=== PATIENT | female | born 1940 | race Caucasian/White ===

== ENCOUNTER 2022-02-14 13:19 | Inpatient (IN) | payer OTHER ==
[2022-02-14 14:24] LABS: #Eosinphils 0.1 thou/uL (0.0-0.7); #Lymphocytes 1.4 thou/uL (1.20-3.40); #Monocytes 0.9 thou/uL (0.11-0.59); #Neutrophils 5.7 thou/uL (1.40-6.50); %Basophils 0.1 % (0.0-1.0); %Eosinophils 0.8 % (0.0-10.0); %Lymphocytes 17.7 % (21.0-51.0); %Monocytes 11.4 % (0.0-10.0); Mean Corpuscular HGB CONC 29.9 g/dL (32.0-36.0); Mean Corpuscular Hemoglobin 30.1 pg (27.0-31.0); Mean Platelet Volume 9.8 fL (7.4-10.4); Platelet Count 148 thou/uL (130-400); RBC Distribution Width 12.7 % (11.5-14.5); Red Blood Cell (RBC) Count 4.31 mill/uL (4.20-5.40); White Blood Cell (WBC) Count 8.1 thou/uL (4.8-10.8)
[2022-02-14 14:44] LABS: ALT (SGPT) 13 U/L (8-55); AST (SGOT) 21 U/L (5-34); Albumin 3.9 g/dL (3.4-4.8); Alkaline Phosphatase 68 U/L (40-110); Anion Gap 15 mmol/L (10-20); BUN (Urea Nitrogen) 12 mg/dL (9.8-20.1); Bilirubin, Total 0.6 mg/dL (0.2-1.2); Calc. Creatinine Clearance 0 mL/min (70-130); Carbon Dioxide 21 mmol/L (23-31); Chloride 108 mmol/L (98-107); Estimated GFR 47; Globulin 3.2 g/dL (2.4-3.5); Glucose 99 mg/dL (83-110); Lipase 41 U/L (8-78); Potassium 4.2 mmol/L (3.5-5.1); Protein, Total 7.1 g/dL (5.8-8.1); Sodium 140 mmol/L (136-145)
[2022-02-14 14:50] LABS: MDiff Complete? YES; Macrocytosis SLIGHT = 6-15 cells (100X) (0-5/hpf); Platelet Morphology Comment Appears Adequate
[2022-02-14 15:06] LABS: CKMB 1.9 ng/mL (0-6.6)
[2022-02-14 15:29] LABS: Bilirubin Negative (Negative); Blood, Urine Trace (Negative); Clarity Turbid (Clear); Glucose, Urine (Dipstick) Normal (Negative); Ketone, Urine Negative (Negative); Leukocyte 500 Leu/uL (Negative); Nitrite 2+ (Negative); Protein, Urine (Dipstick) 10 mg/dL (Neg-Trace); Specific Gravity, Urine 1.013 (1.002-1.036); Squamous Epithelial 0-3 HPF (0-3); Urobilinogen Normal mg/dL (Less than 2)
[2022-02-14 15:37] LABS: Bacteria/HPF 4+ HPF (None Seen); WBC/HPF 21-50 HPF (0-3); Yeast-Budding None Seen HPF (None Seen)
[2022-02-14] MEDS ORDERED: Aspirin Chewable 81 MG TAB ONE (16:15)
[2022-02-14 17:57] LABS: Troponin I 0.039 ng/mL (< 0.028)
[2022-02-14] MEDS ORDERED: Enoxaparin Sodium 40 MG/0.4 ML SYRINGE SC SCH (18:00)
[2022-02-14] MEDS ORDERED: Nitroglycerin 2% Ointment 1 INCH/1 GM Packet ONE (18:09)
[2022-02-14 18:15] LABS: Magnesium 1.9 mg/dL (1.6-2.6); Phosphorus 2.5 mg/dL (2.3-4.7)
[2022-02-14 18:17] LABS: Hemoglobin A1c 5.2 % (4.0-6.0)
[2022-02-14 18:59] LABS: Creatinine, Urine 76.17 mg/dL (47-110)
[2022-02-14 19:04] VITALS: BMI 33.0
[2022-02-14] MEDS ORDERED: Magnesium 2 GM/50 ML(in water) 1 GM in Premix Bag 1 BAG IVPB SCH (19:15)
[2022-02-14] MEDS ORDERED: Magnesium 2 GM/50 ML BAG (IN WATER) ONE (20:04)
[2022-02-14] MEDS ORDERED: cefTRIAXone\\ROCEPHIN 1 GM VIAL ONE (20:04)
[2022-02-14] MEDS ORDERED: ALPRAZolam 0.5 MG TAB PO PRN (20:33)
[2022-02-14] MEDS ORDERED: traMADol HCl 50 MG TAB PO SCH (20:45)
[2022-02-14] MEDS: Simvastatin 10 MG TAB PO SCH (20:52)
[2022-02-14] MEDS: cefTRIAXone\\ROCEPHIN 1 GM in Sodium Chloride 0.9% 100 ML IVPB SCH (20:52)
[2022-02-14] MEDS: Carvedilol 6.25 MG TAB PO SCH (20:54)
[2022-02-14 21:55] LABS: Troponin I 0.035 ng/mL (< 0.028)
[2022-02-14] MEDS ORDERED: Zolpidem Tartrate 5 MG TAB PO SCH (23:15)
[2022-02-15 05:17] LABS: Anion Gap 12 mmol/L (10-20); BUN (Urea Nitrogen) 12 mg/dL (9.8-20.1); Calc. Creatinine Clearance 52 mL/min (70-130); Calcium 8.3 mg/dL (7.8-10.44); Carbon Dioxide 24 mmol/L (23-31); Cardiac Risk 2.3 (Less than 4.5); Chloride 107 mmol/L (98-107); Cholesterol 116 mg/dl (< 200 Desired); Estimated GFR 45; Glucose 94 mg/dL (83-110); HDL Cholesterol 51 mg/dL (>60 Neg Risk); LDL Cholesterol, Calculated 49 mg/dL; Potassium 3.8 mmol/L (3.5-5.1); Sodium 139 mmol/L (136-145); Triglycerides 80 mg/dL (Less than 150)
[2022-02-15] MEDS: Levothyroxine Sodium 100 MCG TAB PO SCH (05:36)
[2022-02-15 06:03] LABS: #Lymphocytes 2.3 thou/uL (1.20-3.40); #Monocytes 1.1 thou/uL (0.11-0.59); #Neutrophils 4.6 thou/uL (1.40-6.50); %Basophils 0.2 % (0.0-1.0); %Eosinophils 0.5 % (0.0-10.0); %Lymphocytes 28.6 % (21.0-51.0); %Monocytes 14.1 % (0.0-10.0); %Neutrophils 56.5 % (42.0-75.0); Hemoglobin 11.6 g/dL (12.0-16.0); Mean Corpuscular HGB CONC 33.6 g/dL (32.0-36.0); Mean Corpuscular Hemoglobin 32.2 pg (27.0-31.0); Mean Corpuscular Volume 95.9 fL (78.0-98.0); Mean Platelet Volume 9.1 fL (7.4-10.4); Platelet Count 166 thou/uL (130-400); RBC Distribution Width 12.3 % (11.5-14.5); White Blood Cell (WBC) Count 8.1 thou/uL (4.8-10.8)
[2022-02-15 06:04] LABS: Platelet Morphology Comment Appears Adequate
[2022-02-15] MEDS ORDERED: Aspirin 81 mg Enteric Coated Tablet PO SCH (09:00)
[2022-02-15] MEDS: ALPRAZolam 0.5 MG TAB PO PRN (09:19)
[2022-02-15] MEDS: Clopidogrel Bisulfate 75 MG TAB PO SCH (09:19)
[2022-02-15] MEDS: Acetaminophen 325 MG TAB PO PRN (09:19)
[2022-02-15] MEDS: Lisinopril 20 MG TAB PO SCH (09:20)
[2022-02-15] MEDS: Aspirin Chewable 81 MG TAB PO SCH (09:20)
[2022-02-15] MEDS ORDERED: Regadenoson 0.4 MG/5 ML SYRINGE ONE (09:40)
[2022-02-15] MEDS: cefTRIAXone\\ROCEPHIN 1 GM in Sodium Chloride 0.9% 100 ML IVPB SCH (21:28)
[2022-02-15] MEDS: Simvastatin 10 MG TAB PO SCH (21:31)
[2022-02-16] MEDS: Levothyroxine Sodium 100 MCG TAB PO SCH (04:54)
[2022-02-16] MEDS: Acetaminophen 325 MG TAB PO PRN (04:54)
[2022-02-16 05:01] LABS: Band 2 % (5-11); Hemoglobin 11.7 g/dL (12.0-16.0); Hypochromia SLIGHT = 6-15 cells (100X) (0-5/hpf); Lymphocytes 49 % (21-51); MDiff Complete? YES; Mean Corpuscular HGB CONC 31.7 g/dL (32.0-36.0); Mean Corpuscular Hemoglobin 30.8 pg (27.0-31.0); Mean Corpuscular Volume 97.1 fL (78.0-98.0); Mean Platelet Volume 8.1 fL (7.4-10.4); Monocytes 6 % (0-10); Neutrophil 43 % (42-75); Platelet Count 162 thou/uL (130-400); Platelet Morphology Comment Appears Adequate; RBC Distribution Width 12.4 % (11.5-14.5); Red Blood Cell (RBC) Count 3.79 mill/uL (4.20-5.40); White Blood Cell (WBC) Count 4.8 thou/uL (4.8-10.8)
[2022-02-16 05:04] LABS: Anion Gap 10 mmol/L (10-20); BUN (Urea Nitrogen) 15 mg/dL (9.8-20.1); Calc. Creatinine Clearance 55 mL/min (70-130); Calcium 8.3 mg/dL (7.8-10.44); Carbon Dioxide 23 mmol/L (23-31); Chloride 109 mmol/L (98-107); Estimated GFR 48; Glucose 84 mg/dL (83-110); Potassium 3.8 mmol/L (3.5-5.1); Sodium 138 mmol/L (136-145)
[2022-02-16] MEDS: Aspirin Chewable 81 MG TAB PO SCH (10:48)
[2022-02-16] MEDS: Clopidogrel Bisulfate 75 MG TAB PO SCH (10:48)
[2022-02-16] MEDS: Lisinopril 20 MG TAB PO SCH (10:49)
[2022-02-16] MEDS: cefTRIAXone\\ROCEPHIN 1 GM in Sodium Chloride 0.9% 100 ML IVPB SCH (21:34)
[2022-02-16] MEDS: Simvastatin 10 MG TAB PO SCH (21:34)
[2022-02-17] MEDS: ALPRAZolam 0.5 MG TAB PO PRN ×2 (00:19→23:46)
[2022-02-17 04:53] LABS: #Eosinphils 0.2 thou/uL (0.0-0.7); #Lymphocytes 1.9 thou/uL (1.20-3.40); #Monocytes 0.7 thou/uL (0.11-0.59); #Neutrophils 2.8 thou/uL (1.40-6.50); %Basophils 0.7 % (0.0-1.0); %Eosinophils 2.7 % (0.0-10.0); %Lymphocytes 34.1 % (21.0-51.0); %Monocytes 12.9 % (0.0-10.0); %Neutrophils 49.7 % (42.0-75.0); Hemoglobin 12.6 g/dL (12.0-16.0); Mean Corpuscular HGB CONC 33.3 g/dL (32.0-36.0); Mean Corpuscular Hemoglobin 32.1 pg (27.0-31.0); Mean Corpuscular Volume 96.2 fL (78.0-98.0); Platelet Count 207 thou/uL (130-400); RBC Distribution Width 12.3 % (11.5-14.5); Red Blood Cell (RBC) Count 3.91 mill/uL (4.20-5.40); White Blood Cell (WBC) Count 5.6 thou/uL (4.8-10.8)
[2022-02-17 05:11] LABS: Anion Gap 11 mmol/L (10-20); BUN (Urea Nitrogen) 13 mg/dL (9.8-20.1); Calc. Creatinine Clearance 52 mL/min (70-130); Calcium 8.7 mg/dL (7.8-10.44); Carbon Dioxide 26 mmol/L (23-31); Chloride 107 mmol/L (98-107); Estimated GFR 45; Glucose 94 mg/dL (83-110); Potassium 3.7 mmol/L (3.5-5.1); Sodium 140 mmol/L (136-145)
[2022-02-17] MEDS: Levothyroxine Sodium 100 MCG TAB PO SCH (05:51)
[2022-02-17] MEDS ORDERED: Communication Order-Pharmacy FS SCH (08:00)
[2022-02-17] MEDS: Aspirin Chewable 81 MG TAB PO SCH (09:35)
[2022-02-17] MEDS: Carvedilol 6.25 MG TAB PO SCH ×2 (09:36→20:51)
[2022-02-17] MEDS: Clopidogrel Bisulfate 75 MG TAB PO SCH (09:36)
[2022-02-17] MEDS: Lisinopril 20 MG TAB PO SCH (09:36)
[2022-02-17] MEDS: Simvastatin 10 MG TAB PO SCH (20:50)
[2022-02-17] MEDS: cefTRIAXone\\ROCEPHIN 1 GM in Sodium Chloride 0.9% 100 ML IVPB SCH (21:08)
[2022-02-18] MEDS: Aspirin Chewable 81 MG TAB PO SCH (05:47)
[2022-02-18] MEDS: Levothyroxine Sodium 100 MCG TAB PO SCH (05:49)
[2022-02-18] MEDS: Lisinopril 20 MG TAB PO SCH (05:49)
[2022-02-18] MEDS: Carvedilol 6.25 MG TAB PO SCH ×2 (05:49→20:22)
[2022-02-18] MEDS: Clopidogrel Bisulfate 75 MG TAB PO SCH (05:50)
[2022-02-18] MEDS ORDERED: Sodium Chloride 0.9% 1,000 ML IV SCH ×2 (06:00→10:45)
[2022-02-18 08:20] LABS: #Eosinphils 0.1 thou/uL (0.0-0.7); #Lymphocytes 1.4 thou/uL (1.20-3.40); #Monocytes 0.6 thou/uL (0.11-0.59); #Neutrophils 2.3 thou/uL (1.40-6.50); %Basophils 0.2 % (0.0-1.0); %Eosinophils 3.2 % (0.0-10.0); %Lymphocytes 31.9 % (21.0-51.0); %Monocytes 13.6 % (0.0-10.0); %Neutrophils 51.1 % (42.0-75.0); Mean Corpuscular HGB CONC 33.1 g/dL (32.0-36.0); Mean Corpuscular Hemoglobin 31.9 pg (27.0-31.0); Mean Corpuscular Volume 96.5 fL (78.0-98.0); Platelet Count 191 thou/uL (130-400); RBC Distribution Width 12.3 % (11.5-14.5); Red Blood Cell (RBC) Count 3.78 mill/uL (4.20-5.40); White Blood Cell (WBC) Count 4.4 thou/uL (4.8-10.8)
[2022-02-18 08:34] LABS: Anion Gap 14 mmol/L (10-20); BUN (Urea Nitrogen) 13 mg/dL (9.8-20.1); Calc. Creatinine Clearance 55 mL/min (70-130); Calcium 8.8 mg/dL (7.8-10.44); Carbon Dioxide 24 mmol/L (23-31); Chloride 109 mmol/L (98-107); Estimated GFR 48; Glucose 93 mg/dL (83-110); Potassium 3.9 mmol/L (3.5-5.1); Sodium 143 mmol/L (136-145)
[2022-02-18] MEDS ORDERED: Lidocaine 1% (PF) 30 ML VIAL ONE (09:23)
[2022-02-18] MEDS ORDERED: Heparin 10,000 UNITS/ 10 ML VIAL ONE (09:27)
[2022-02-18] MEDS ORDERED: Verapamil 5 MG/2 ML VIAL ONE (09:27)
[2022-02-18] MEDS ORDERED: Nitroglycerin 100MG/250ML BOT 250 ML ONE (09:27)
[2022-02-18] MEDS ORDERED: Midazolam HCl 2 mg/2 ml Vial ONE (10:01)
[2022-02-18] MEDS ORDERED: Fentanyl 100 MCG/2 ML VIAL ONE (10:01)
[2022-02-18] MEDS ORDERED: Nitroglycerin 0.4 MG TAB (25 Tab Bottle) SL PRN (10:43)
[2022-02-18] MEDS ORDERED: Sodium Chloride 0.9% 200 ML IV PRN (10:43)
[2022-02-18] MEDS ORDERED: Acetaminophen/Codeine 30-300mg Tablet PO PRN ×2 (10:43)
[2022-02-18] MEDS ORDERED: Iopamidol 370 76% 100 ML VIAL ONE (13:27)
[2022-02-18] MEDS: cefTRIAXone\\ROCEPHIN 1 GM in Sodium Chloride 0.9% 100 ML IVPB SCH (20:21)
[2022-02-18] MEDS: Simvastatin 10 MG TAB PO SCH (20:22)
[2022-02-19] MEDS ORDERED: ALPRAZolam 0.5 MG TAB ONE (02:11)
[2022-02-19 05:07] LABS: #Eosinphils 0.1 thou/uL (0.0-0.7); #Lymphocytes 1.1 thou/uL (1.20-3.40); #Monocytes 0.5 thou/uL (0.11-0.59); #Neutrophils 1.7 thou/uL (1.40-6.50); %Basophils 0.5 % (0.0-1.0); %Eosinophils 3.1 % (0.0-10.0); %Monocytes 14.8 % (0.0-10.0); %Neutrophils 48.6 % (42.0-75.0); Hemoglobin 11.3 g/dL (12.0-16.0); Mean Corpuscular HGB CONC 31.3 g/dL (32.0-36.0); Mean Corpuscular Hemoglobin 30.2 pg (27.0-31.0); Mean Corpuscular Volume 96.6 fL (78.0-98.0); Mean Platelet Volume 8.7 fL (7.4-10.4); Platelet Count 217 thou/uL (130-400); RBC Distribution Width 12.7 % (11.5-14.5); Red Blood Cell (RBC) Count 3.74 mill/uL (4.20-5.40); White Blood Cell (WBC) Count 3.5 thou/uL (4.8-10.8)
[2022-02-19 05:29] LABS: Anion Gap 14 mmol/L (10-20); BUN (Urea Nitrogen) 9 mg/dL (9.8-20.1); Calc. Creatinine Clearance 58 mL/min (70-130); Calcium 8.6 mg/dL (7.8-10.44); Carbon Dioxide 21 mmol/L (23-31); Chloride 109 mmol/L (98-107); Estimated GFR 52; Glucose 95 mg/dL (83-110); Potassium 4.2 mmol/L (3.5-5.1); Sodium 140 mmol/L (136-145)
[2022-02-19] MEDS: Levothyroxine Sodium 100 MCG TAB PO SCH (05:52)
[2022-02-19] MEDS: Aspirin Chewable 81 MG TAB PO SCH (07:39)
[2022-02-19] MEDS: Lisinopril 20 MG TAB PO SCH (07:39)
[2022-02-19] MEDS: Carvedilol 6.25 MG TAB PO SCH ×2 (07:39→20:40)
[2022-02-19] MEDS ORDERED: Furosemide 40 MG/4 ML VIAL SLOW IVP SCH (11:00)
[2022-02-19] MEDS: Acetaminophen 325 MG TAB PO PRN (20:46)
[2022-02-19] MEDS ORDERED: Atorvastatin Calcium 10 MG TAB PO SCH (21:00)
[2022-02-20] MEDS: ALPRAZolam 0.5 MG TAB PO PRN (00:47)
[2022-02-20] MEDS: Levothyroxine Sodium 100 MCG TAB PO SCH (06:01)
[2022-02-20 08:28] VITALS: TEMP 97.5
[2022-02-20 08:33] LABS: Hemoglobin 11.9 g/dL (12.0-16.0); Mean Corpuscular HGB CONC 31.3 g/dL (32.0-36.0); Mean Corpuscular Volume 95.8 fL (78.0-98.0); Mean Platelet Volume 7.6 fL (7.4-10.4); Platelet Count 201 thou/uL (130-400); RBC Distribution Width 12.3 % (11.5-14.5); Red Blood Cell (RBC) Count 3.95 mill/uL (4.20-5.40)
[2022-02-20] MEDS: Aspirin Chewable 81 MG TAB PO SCH (08:40)
[2022-02-20] MEDS: Carvedilol 6.25 MG TAB PO SCH (08:41)
[2022-02-20 08:44] LABS: Anion Gap 15 mmol/L (10-20); BUN (Urea Nitrogen) 15 mg/dL (9.8-20.1); Calc. Creatinine Clearance 45 mL/min (70-130); Calcium 9.2 mg/dL (7.8-10.44); Carbon Dioxide 25 mmol/L (23-31); Chloride 106 mmol/L (98-107); Estimated GFR 38; Glucose 84 mg/dL (83-110); Potassium 4.6 mmol/L (3.5-5.1); Sodium 141 mmol/L (136-145)
[2022-02-20] MEDS ORDERED: Enoxaparin Sodium 40 MG/0.4 ML SYRINGE SC SCH (09:00)
[2022-02-20 11:08] LABS: Band 1 % (5-11); Eosinophils 2 % (0-10); Lymphocytes 37 % (21-51); MDiff Complete? YES; Monocytes 12 % (0-10); Neutrophil 42 % (42-75); Platelet Morphology Comment Appears Adequate; RBC Morphology Normal; Reactive Lymphocytes 6 % (0-10)
[2022-02-20 11:55] VITALS: BP 113/61
[2022-02-20] MEDS ORDERED: Sacubitril 49 MG/Valsartan 51 MG TABLET PO SCH (21:00)
== END 2022-02-20 12:22 | disposition home or self-care (01) | DRG 281 ==
LOC: ERS 13:19 → ERHOLD 16:23 → 2SW 18:38 → OBSVTOIN 02-17 09:05
PROVIDERS: ADMIT Student in an Organized Health Care Education/Training Program; ATTEND Student in an Organized Health Care Education/Training Program
PROC: 4A023N7 Measurement of Cardiac Sampling and Pressure, Left Heart, Percutaneous Approach (ICD-10-PCS; principal; 2022-02-18)
PROC: B2111ZZ Fluoroscopy of Multiple Coronary Arteries using Low Osmolar Contrast (ICD-10-PCS; 2022-02-18)
DX: I97.190 Other postprocedural cardiac functional disturbances following cardiac surgery (principal); I21.9 Acute myocardial infarction, unspecified; T82.855A Stenosis of coronary artery stent, initial encounter; I21.A9 Other myocardial infarction type; I50.20 Unspecified systolic (congestive) heart failure; N39.0 Urinary tract infection, site not specified; N17.9 Acute kidney failure, unspecified; Z16.29 Resistance to other single specified antibiotic; I25.10 Atherosclerotic heart disease of native coronary artery without angina pectoris; R07.89 Other chest pain; I25.5 Ischemic cardiomyopathy; I11.0 Hypertensive heart disease with heart failure; K21.9 Gastro-esophageal reflux disease without esophagitis; E89.0 Postprocedural hypothyroidism; B96.20 Unspecified Escherichia coli [E. coli] as the cause of diseases classified elsewhere; I44.0 Atrioventricular block, first degree; E78.5 Hyperlipidemia, unspecified; Y84.8 Other medical procedures as the cause of abnormal reaction of the patient, or of later complication, without mention of misadventure at the time of the procedure; J44.9 Chronic obstructive pulmonary disease, unspecified; Z20.822 Contact with and (suspected) exposure to COVID-19; Z95.5 Presence of coronary angioplasty implant and graft; Z86.73 Personal history of transient ischemic attack (TIA), and cerebral infarction without residual deficits; Z99.81 Dependence on supplemental oxygen; Z85.038 Personal history of other malignant neoplasm of large intestine; I25.2 Old myocardial infarction; Z86.16 Personal history of COVID-19; Z88.2 Allergy status to sulfonamides; Z88.0 Allergy status to penicillin; Z88.8 Allergy status to other drugs, medicaments and biological substances; Z90.49 Acquired absence of other specified parts of digestive tract; Z82.49 Family history of ischemic heart disease and other diseases of the circulatory system; Z87.891 Personal history of nicotine dependence; Z79.82 Long term (current) use of aspirin; Z79.899 Other long term (current) drug therapy; Z79.890 Hormone replacement therapy; Z79.02 Long term (current) use of antithrombotics/antiplatelets
CPT/HCPCS: 36415; 71045; 78452; 80048; 80053; 80061; 81003; 81015; 82553; 82570; 83036; 83690; 83735; 84100; 84300; 84443; 84484; 85025; 87077; 87086; 87186; 93005; 93017; 93306; 93458; 93798; 96365; 96372; 96375; 96376; A9500; C1769; C1887; C1894; G0378; J0696; J1644; J1650; J1940; J2001; J2250; J2785; J3010; J3475; J3490; J7050; Q9967; U0003; U0005

== ENCOUNTER 2022-03-21 04:53 | Inpatient (IN) | payer MEDICARE, OTHER ==
[2022-03-21] MEDS ORDERED: Aspirin Chewable 81 MG TAB ONE (05:31)
[2022-03-21 06:04] LABS: #Eosinphils 0.1 thou/uL (0.0-0.7); #Lymphocytes 1.6 thou/uL (1.20-3.40); #Monocytes 0.6 thou/uL (0.11-0.59); #Neutrophils 3.4 thou/uL (1.40-6.50); %Basophils 0.8 % (0.0-1.0); %Eosinophils 2.5 % (0.0-10.0); %Monocytes 9.9 % (0.0-10.0); %Neutrophils 58.9 % (42.0-75.0); Hemoglobin 13.1 g/dL (12.0-16.0); Mean Corpuscular HGB CONC 32.5 g/dL (32.0-36.0); Mean Corpuscular Hemoglobin 30.3 pg (27.0-31.0); Mean Corpuscular Volume 93.3 fL (78.0-98.0); Mean Platelet Volume 8.3 fL (7.4-10.4); Platelet Count 151 thou/uL (130-400); RBC Distribution Width 12.2 % (11.5-14.5); Red Blood Cell (RBC) Count 4.34 mill/uL (4.20-5.40); White Blood Cell (WBC) Count 5.8 thou/uL (4.8-10.8)
[2022-03-21 06:22] LABS: ALT (SGPT) 13 U/L (8-55); AST (SGOT) 23 U/L (5-34); Albumin 4.1 g/dL (3.4-4.8); Alkaline Phosphatase 83 U/L (40-110); Anion Gap 15 mmol/L (10-20); BUN (Urea Nitrogen) 22 mg/dL (9.8-20.1); Bilirubin, Total 0.5 mg/dL (0.2-1.2); Calc. Creatinine Clearance 0 mL/min (70-130); Calcium 9.3 mg/dL (7.8-10.44); Carbon Dioxide 22 mmol/L (23-31); Chloride 105 mmol/L (98-107); Estimated GFR 41; Globulin 3.3 g/dL (2.4-3.5); Glucose 122 mg/dL (83-110); Lipase 125 U/L (8-78); Potassium 4.1 mmol/L (3.5-5.1); Protein, Total 7.4 g/dL (5.8-8.1); Sodium 138 mmol/L (136-145)
[2022-03-21] MEDS ORDERED: Ondansetron PF 4 MG/2 ML Vial IVP PRN (08:22)
[2022-03-21] MEDS ORDERED: Ondansetron ODT 4 MG TAB PO PRN (08:22)
[2022-03-21] MEDS ORDERED: Acetaminophen 325 MG TAB PO PRN (08:22)
[2022-03-21 08:28] LABS: Troponin I 0.046 ng/mL (< 0.028)
[2022-03-21 09:44] VITALS: BMI 31.9
[2022-03-21] MEDS ORDERED: ALPRAZolam 0.5 MG TAB PO PRN (09:44)
[2022-03-21] MEDS ORDERED: Lactated Ringer's 500 ML IV SCH (10:00)
[2022-03-21 15:49] VITALS: TEMP 97.6
[2022-03-21 16:25] VITALS: BP 160/96
[2022-03-21] MEDS ORDERED: Atorvastatin Calcium 10 MG TAB PO SCH (21:00)
[2022-03-21] MEDS ORDERED: Sacubitril 49 MG/Valsartan 51 MG TABLET PO SCH (21:00)
[2022-03-21] MEDS ORDERED: Carvedilol 6.25 MG TAB PO SCH (21:00)
[2022-03-22] MEDS ORDERED: Levothyroxine Sodium 100 MCG TAB PO SCH (06:00)
[2022-03-22] MEDS ORDERED: Clopidogrel Bisulfate 75 MG TAB PO SCH (09:00)
[2022-03-22] MEDS ORDERED: Aspirin Chewable 81 MG TAB PO SCH (09:00)
== END 2022-03-21 17:10 | disposition home health service (06) | DRG 303 ==
LOC: ERS 04:53 → 2SW 06:54 → OBSVTOIN 08:29
PROVIDERS: ADMIT Student in an Organized Health Care Education/Training Program; ATTEND Student in an Organized Health Care Education/Training Program
DX: I25.110 Atherosclerotic heart disease of native coronary artery with unstable angina pectoris (principal); I50.22 Chronic systolic (congestive) heart failure; I13.0 Hypertensive heart and chronic kidney disease with heart failure and stage 1 through stage 4 chronic kidney disease, or unspecified chronic kidney disease; Z20.822 Contact with and (suspected) exposure to COVID-19; E78.5 Hyperlipidemia, unspecified; E03.9 Hypothyroidism, unspecified; K21.9 Gastro-esophageal reflux disease without esophagitis; N18.32 Chronic kidney disease, stage 3b; I25.5 Ischemic cardiomyopathy; E86.0 Dehydration; Z95.5 Presence of coronary angioplasty implant and graft; Z86.73 Personal history of transient ischemic attack (TIA), and cerebral infarction without residual deficits; Z88.0 Allergy status to penicillin; Z88.2 Allergy status to sulfonamides; Z88.1 Allergy status to other antibiotic agents; Z79.82 Long term (current) use of aspirin; Z79.890 Hormone replacement therapy; Z79.899 Other long term (current) drug therapy; Z90.49 Acquired absence of other specified parts of digestive tract
CPT/HCPCS: 36415; 71045; 80053; 83690; 83880; 84484; 85025; 93005; J7120; U0003; U0005

== ENCOUNTER 2022-10-04 18:05 | Inpatient (IN) | payer OTHER ==
[2022-10-04 18:51] LABS: #Eosinphils 0.1 thou/uL (0.0-0.7); #Lymphocytes 1.2 thou/uL (1.20-3.40); #Monocytes 0.5 thou/uL (0.11-0.59); #Neutrophils 3.1 thou/uL (1.40-6.50); %Basophils 0.3 % (0.0-1.0); %Eosinophils 1.1 % (0.0-10.0); %Lymphocytes 24.8 % (21.0-51.0); %Monocytes 10.3 % (0.0-10.0); %Neutrophils 63.5 % (42.0-75.0); Hemoglobin 11.9 g/dL (12.0-16.0); Mean Corpuscular HGB CONC 32.1 g/dL (32.0-36.0); Mean Corpuscular Hemoglobin 29.8 pg (27.0-31.0); Mean Corpuscular Volume 92.7 fl (78.0-98.0); Platelet Count 188 10x3/uL (130-400); RBC Distribution Width 13.3 % (11.5-14.5); White Blood Cell (WBC) Count 4.9 10x3/uL (4.8-10.8)
[2022-10-04 19:13] LABS: ALT (SGPT) 16 U/L (8-55); AST (SGOT) 28 U/L (5-34); Albumin 4.1 g/dL (3.4-4.8); Alkaline Phosphatase 68 U/L (40-110); Anion Gap 16 mmol/L (10-20); BUN (Urea Nitrogen) 20 mg/dL (9.8-20.1); Bilirubin, Total 0.6 mg/dL (0.2-1.2); Calc. Creatinine Clearance 0 mL/min (70-130); Calcium 9.3 mg/dL (7.8-10.44); Carbon Dioxide 21 mmol/L (23-31); Chloride 109 mmol/L (98-107); Estimated GFR 37; Globulin 2.9 g/dL (2.4-3.5); Glucose 104 mg/dL (83-110); Potassium 5.1 mmol/L (3.5-5.1); Sodium 141 mmol/L (136-145)
[2022-10-04] MEDS ORDERED: Furosemide 40 MG/4 ML VIAL ONE (21:05)
[2022-10-04] MEDS ORDERED: Nitroglycerin 2% Ointment 1 INCH/1 GM Packet ONE (21:05)
[2022-10-04] MEDS ORDERED: Ondansetron ODT 4 MG TAB SL PRN (23:00)
[2022-10-04] MEDS ORDERED: Acetaminophen 325 MG TAB PO PRN (23:00)
[2022-10-04] MEDS ORDERED: Ondansetron PF 4 MG/2 ML Vial IVP PRN ×2 (23:00→23:27)
[2022-10-04 23:04] LABS: Troponin I 0.023 ng/mL (< 0.028)
[2022-10-04] MEDS ORDERED: Dextrose 50% Abboject 50 ML SYRINGE SLOW IVP PRN (23:23)
[2022-10-04] MEDS ORDERED: Dextrose 5% in Water 1,000 ML IV PRN (23:23)
[2022-10-04] MEDS ORDERED: Ondansetron ODT 4 MG TAB PO PRN (23:27)
[2022-10-04] MEDS ORDERED: HumaLOG 300 UNITS/3 ML VIAL SC PRN ×2 (23:32)
[2022-10-05] MEDS ORDERED: Acetaminophen 325 MG TAB PO PRN (02:09)
[2022-10-05] MEDS: Acetaminophen 325 MG TAB PO PRN ×2 (02:30→20:03)
[2022-10-05 02:40] LABS: #Eosinphils 0.1 thou/uL (0.0-0.7); #Lymphocytes 1.7 thou/uL (1.20-3.40); #Monocytes 0.8 thou/uL (0.11-0.59); #Neutrophils 3.7 thou/uL (1.40-6.50); %Basophils 0.7 % (0.0-1.0); %Eosinophils 1.3 % (0.0-10.0); %Lymphocytes 26.5 % (21.0-51.0); %Neutrophils 59.5 % (42.0-75.0); Hemoglobin 12.4 g/dL (12.0-16.0); Mean Corpuscular HGB CONC 33.1 g/dL (32.0-36.0); Mean Corpuscular Hemoglobin 30.7 pg (27.0-31.0); Mean Corpuscular Volume 92.8 fl (78.0-98.0); Mean Platelet Volume 8.2 fL (7.4-10.4); Platelet Count 202 10x3/uL (130-400); RBC Distribution Width 13.4 % (11.5-14.5); Red Blood Cell (RBC) Count 4.04 mill/uL (4.20-5.40); White Blood Cell (WBC) Count 6.2 10x3/uL (4.8-10.8)
[2022-10-05] MEDS ORDERED: Aspirin Chewable 81 MG TAB PO SCH (03:00)
[2022-10-05 03:04] LABS: Troponin I 0.041 ng/mL (< 0.028)
[2022-10-05 03:18] LABS: ALT (SGPT) 15 U/L (8-55); AST (SGOT) 27 U/L (5-34); Albumin 3.9 g/dL (3.4-4.8); Alkaline Phosphatase 64 U/L (40-110); Anion Gap 17 mmol/L (10-20); BUN (Urea Nitrogen) 19 mg/dL (9.8-20.1); Bilirubin, Total 0.8 mg/dL (0.2-1.2); Calc. Creatinine Clearance 41 mL/min (70-130); Calcium 9.3 mg/dL (7.8-10.44); Carbon Dioxide 21 mmol/L (23-31); Cardiac Risk 2.4 (Less than 4.5); Chloride 107 mmol/L (98-107); Cholesterol 149 mg/dl (< 200 Desired); Estimated GFR 37; Globulin 3.4 g/dL (2.4-3.5); Glucose 96 mg/dL (83-110); HDL Cholesterol 63 mg/dL (>60 Neg Risk); LDL Cholesterol, Calculated 74 mg/dL; Potassium 3.8 mmol/L (3.5-5.1); Protein, Total 7.3 g/dL (5.8-8.1); Sodium 141 mmol/L (136-145); Triglycerides 62 mg/dL (Less than 150)
[2022-10-05] MEDS: Levothyroxine Sodium 100 MCG TAB PO SCH (05:01)
[2022-10-05] MEDS: Furosemide 40 MG/4 ML VIAL SLOW IVP SCH ×2 (05:01→15:24)
[2022-10-05] MEDS: ALPRAZolam 0.5 MG TAB PO PRN (05:01)
[2022-10-05 05:28] LABS: Hemoglobin A1c 5.4 % (4.0-6.0)
[2022-10-05 09:44] LABS: Troponin I 0.032 ng/mL (< 0.028)
[2022-10-05] MEDS: Aspirin Chewable 81 MG TAB PO SCH (09:44)
[2022-10-05] MEDS: Atorvastatin Calcium 40 MG TAB PO SCH (09:44)
[2022-10-05] MEDS ORDERED: Iopamidol-370 76% 500 ML MDV (1 ML CHARGE) ONE (12:11)
[2022-10-06 05:07] LABS: #Eosinphils 0.1 thou/uL (0.0-0.7); #Lymphocytes 1.5 thou/uL (1.20-3.40); #Monocytes 0.9 thou/uL (0.11-0.59); #Neutrophils 4.9 thou/uL (1.40-6.50); %Basophils 0.3 % (0.0-1.0); %Eosinophils 1.3 % (0.0-10.0); %Lymphocytes 20.2 % (21.0-51.0); %Monocytes 11.8 % (0.0-10.0); %Neutrophils 66.5 % (42.0-75.0); Hemoglobin 12.3 g/dL (12.0-16.0); Mean Corpuscular HGB CONC 32.7 g/dL (32.0-36.0); Mean Corpuscular Hemoglobin 30.4 pg (27.0-31.0); Mean Platelet Volume 8.5 fL (7.4-10.4); Platelet Count 203 10x3/uL (130-400); RBC Distribution Width 13.5 % (11.5-14.5); Red Blood Cell (RBC) Count 4.03 mill/uL (4.20-5.40); White Blood Cell (WBC) Count 7.4 10x3/uL (4.8-10.8)
[2022-10-06 05:30] LABS: ALT (SGPT) 15 U/L (8-55); AST (SGOT) 26 U/L (5-34); Albumin 3.9 g/dL (3.4-4.8); Alkaline Phosphatase 66 U/L (40-110); Anion Gap 14 mmol/L (10-20); BUN (Urea Nitrogen) 29 mg/dL (9.8-20.1); Bilirubin, Total 0.7 mg/dL (0.2-1.2); Calc. Creatinine Clearance 28 mL/min (70-130); Calcium 9.5 mg/dL (7.8-10.44); Carbon Dioxide 27 mmol/L (23-31); Chloride 102 mmol/L (98-107); Estimated GFR 24; Globulin 3.4 g/dL (2.4-3.5); Glucose 97 mg/dL (83-110); Potassium 3.8 mmol/L (3.5-5.1); Protein, Total 7.3 g/dL (5.8-8.1); Sodium 139 mmol/L (136-145)
[2022-10-06] MEDS: Levothyroxine Sodium 100 MCG TAB PO SCH (06:40)
[2022-10-06] MEDS: Furosemide 40 MG/4 ML VIAL SLOW IVP SCH (06:40)
[2022-10-06] MEDS ORDERED: Furosemide 40 MG TAB PO SCH (09:00)
[2022-10-06] MEDS: Aspirin Chewable 81 MG TAB PO SCH (09:08)
[2022-10-06] MEDS: Sacubitril 49 MG/Valsartan 51 MG TABLET PO SCH ×2 (09:08→20:55)
[2022-10-06] MEDS: Carvedilol 3.125 MG TAB PO SCH ×2 (09:08→17:23)
[2022-10-06] MEDS: Atorvastatin Calcium 40 MG TAB PO SCH (09:09)
[2022-10-06] MEDS: ALPRAZolam 0.5 MG TAB PO PRN (22:15)
[2022-10-06] MEDS: Acetaminophen 325 MG TAB PO PRN (22:16)
[2022-10-07 04:19] LABS: #Eosinphils 0.2 thou/uL (0.0-0.7); #Lymphocytes 1.7 thou/uL (1.20-3.40); #Monocytes 0.7 thou/uL (0.11-0.59); #Neutrophils 3.5 thou/uL (1.40-6.50); %Basophils 0.3 % (0.0-1.0); %Eosinophils 2.9 % (0.0-10.0); %Lymphocytes 27.8 % (21.0-51.0); %Monocytes 11.2 % (0.0-10.0); %Neutrophils 57.8 % (42.0-75.0); Hemoglobin 13.5 g/dL (12.0-16.0); Mean Corpuscular Hemoglobin 29.3 pg (27.0-31.0); Mean Corpuscular Volume 91.6 fl (78.0-98.0); Mean Platelet Volume 8.3 fL (7.4-10.4); Platelet Count 206 10x3/uL (130-400); RBC Distribution Width 13.4 % (11.5-14.5); Red Blood Cell (RBC) Count 4.61 mill/uL (4.20-5.40); White Blood Cell (WBC) Count 6.1 10x3/uL (4.8-10.8)
[2022-10-07 05:18] LABS: ALT (SGPT) 16 U/L (8-55); AST (SGOT) 36 U/L (5-34); Albumin 4.1 g/dL (3.4-4.8); Alkaline Phosphatase 74 U/L (40-110); Anion Gap 16 mmol/L (10-20); BUN (Urea Nitrogen) 36 mg/dL (9.8-20.1); Bilirubin, Total 0.6 mg/dL (0.2-1.2); Calc. Creatinine Clearance 27 mL/min (70-130); Calcium 9.9 mg/dL (7.8-10.44); Carbon Dioxide 22 mmol/L (23-31); Chloride 103 mmol/L (98-107); Estimated GFR 24; Glucose 104 mg/dL (83-110); Potassium 4.4 mmol/L (3.5-5.1); Protein, Total 8.1 g/dL (5.8-8.1); Sodium 137 mmol/L (136-145)
[2022-10-07] MEDS: Levothyroxine Sodium 100 MCG TAB PO SCH (05:30)
[2022-10-07] MEDS: Acetaminophen 325 MG TAB PO PRN (06:45)
[2022-10-07] MEDS: Furosemide 40 MG TAB PO SCH (09:32)
[2022-10-07] MEDS: Carvedilol 3.125 MG TAB PO SCH ×2 (09:32→18:08)
[2022-10-07] MEDS: Aspirin Chewable 81 MG TAB PO SCH (09:37)
[2022-10-07] MEDS: Atorvastatin Calcium 40 MG TAB PO SCH (09:37)
[2022-10-07] MEDS ORDERED: Furosemide 20 MG TAB PO SCH (15:45)
[2022-10-07] MEDS: ALPRAZolam 0.5 MG TAB PO PRN (21:05)
[2022-10-08 04:29] LABS: Hemoglobin 13.4 g/dL (12.0-16.0); Mean Corpuscular HGB CONC 32.9 g/dL (32.0-36.0); Mean Corpuscular Hemoglobin 31.1 pg (27.0-31.0); Mean Corpuscular Volume 94.6 fl (78.0-98.0); Mean Platelet Volume 8.4 fL (7.4-10.4); Platelet Count 182 10x3/uL (130-400); RBC Distribution Width 13.6 % (11.5-14.5); Red Blood Cell (RBC) Count 4.32 mill/uL (4.20-5.40); White Blood Cell (WBC) Count 4.7 10x3/uL (4.8-10.8)
[2022-10-08 05:27] LABS: ALT (SGPT) 13 U/L (8-55); AST (SGOT) 26 U/L (5-34); Albumin 3.6 g/dL (3.4-4.8); Alkaline Phosphatase 67 U/L (40-110); Anion Gap 15 mmol/L (10-20); BUN (Urea Nitrogen) 40 mg/dL (9.8-20.1); Bilirubin, Total 0.5 mg/dL (0.2-1.2); Calc. Creatinine Clearance 32 mL/min (70-130); Calcium 9.4 mg/dL (7.8-10.44); Carbon Dioxide 22 mmol/L (23-31); Chloride 104 mmol/L (98-107); Estimated GFR 28; Globulin 3.4 g/dL (2.4-3.5); Glucose 99 mg/dL (83-110); Potassium 3.9 mmol/L (3.5-5.1); Sodium 137 mmol/L (136-145)
[2022-10-08 05:37] LABS: Band 1 % (5-11); Eosinophils 4 % (0-10); Lymphocytes 26 % (21-51); MDiff Complete? YES; Monocytes 14 % (0-10); Neutrophil 55 % (42-75)
[2022-10-08] MEDS: Levothyroxine Sodium 100 MCG TAB PO SCH (06:14)
[2022-10-08] MEDS: Atorvastatin Calcium 40 MG TAB PO SCH (08:48)
[2022-10-08] MEDS: Aspirin Chewable 81 MG TAB PO SCH (08:49)
[2022-10-08] MEDS: Furosemide 40 MG TAB PO SCH (08:49)
[2022-10-08] MEDS: Carvedilol 3.125 MG TAB PO SCH ×2 (08:51→19:10)
[2022-10-08] MEDS: Sacubitril 49 MG/Valsartan 51 MG TABLET PO SCH ×2 (10:01→21:07)
[2022-10-08] MEDS ORDERED: Lactated Ringer's 1,000 ML IV SCH (12:00)
[2022-10-08] MEDS: ALPRAZolam 0.5 MG TAB PO PRN (21:07)
[2022-10-09 05:13] LABS: #Eosinphils 0.2 thou/uL (0.0-0.7); #Lymphocytes 1.5 thou/uL (1.20-3.40); #Monocytes 0.6 thou/uL (0.11-0.59); #Neutrophils 2.6 thou/uL (1.40-6.50); %Basophils 0.7 % (0.0-1.0); %Eosinophils 3.4 % (0.0-10.0); %Lymphocytes 31.1 % (21.0-51.0); %Monocytes 11.9 % (0.0-10.0); %Neutrophils 52.9 % (42.0-75.0); Hemoglobin 12.5 g/dL (12.0-16.0); Mean Corpuscular HGB CONC 32.2 g/dL (32.0-36.0); Mean Corpuscular Hemoglobin 29.9 pg (27.0-31.0); Mean Corpuscular Volume 92.9 fl (78.0-98.0); Mean Platelet Volume 8.5 fL (7.4-10.4); Platelet Count 190 10x3/uL (130-400); RBC Distribution Width 13.5 % (11.5-14.5); Red Blood Cell (RBC) Count 4.16 mill/uL (4.20-5.40); White Blood Cell (WBC) Count 4.9 10x3/uL (4.8-10.8)
[2022-10-09 05:32] LABS: ALT (SGPT) 13 U/L (8-55); AST (SGOT) 22 U/L (5-34); Albumin 3.8 g/dL (3.4-4.8); Alkaline Phosphatase 63 U/L (40-110); Anion Gap 14 mmol/L (10-20); BUN (Urea Nitrogen) 38 mg/dL (9.8-20.1); Bilirubin, Total 0.4 mg/dL (0.2-1.2); Calc. Creatinine Clearance 31 mL/min (70-130); Calcium 8.8 mg/dL (7.8-10.44); Carbon Dioxide 24 mmol/L (23-31); Chloride 103 mmol/L (98-107); Estimated GFR 28; Globulin 3.1 g/dL (2.4-3.5); Glucose 91 mg/dL (83-110); Potassium 4.2 mmol/L (3.5-5.1); Protein, Total 6.9 g/dL (5.8-8.1); Sodium 137 mmol/L (136-145)
[2022-10-09] MEDS: Levothyroxine Sodium 100 MCG TAB PO SCH (05:33)
[2022-10-09] MEDS ORDERED: Furosemide 20 MG TAB PO SCH (09:00)
[2022-10-09] MEDS: Aspirin Chewable 81 MG TAB PO SCH (10:12)
[2022-10-09] MEDS: Atorvastatin Calcium 40 MG TAB PO SCH (10:12)
[2022-10-09] MEDS ORDERED: Gentamicin 80 MG/2 ML VIAL ONE (10:28)
[2022-10-09] MEDS ORDERED: Vancomycin HCl 500 MG VIAL ONE (10:28)
[2022-10-09] MEDS ORDERED: Clindamycin/D5W 600 mg/50 ml Premix Bag ONE (10:28)
[2022-10-09] MEDS ORDERED: Midazolam HCl 2 mg/2 ml Vial ONE (10:29)
[2022-10-09] MEDS ORDERED: FENTANYL 50 MCG/ML 1 ML VIAL ONE ×2 (10:30→12:32)
[2022-10-09] MEDS ORDERED: Levofloxacin 500 mg/D5W 100 ml Premix Bag ONE (10:42)
[2022-10-09] MEDS ORDERED: Lidocaine 1% (PF) 30 ML VIAL ONE ×2 (11:55→12:13)
[2022-10-09] MEDS: Acetaminophen/Codeine 30-300mg Tablet PO PRN ×2 (18:35→23:35)
[2022-10-09] MEDS: Doxycycline 100 MG CAP PO SCH (20:37)
[2022-10-09] MEDS: Sacubitril 49 MG/Valsartan 51 MG TABLET PO SCH (20:37)
[2022-10-10 04:11] LABS: #Eosinphils 0.1 thou/uL (0.0-0.7); #Lymphocytes 1.4 thou/uL (1.20-3.40); #Monocytes 0.6 thou/uL (0.11-0.59); %Basophils 0.5 % (0.0-1.0); %Eosinophils 2.5 % (0.0-10.0); %Lymphocytes 26.9 % (21.0-51.0); %Monocytes 12.2 % (0.0-10.0); %Neutrophils 57.9 % (42.0-75.0); Hemoglobin 13.1 g/dL (12.0-16.0); Mean Corpuscular HGB CONC 31.9 g/dL (32.0-36.0); Mean Corpuscular Hemoglobin 29.6 pg (27.0-31.0); Mean Platelet Volume 8.3 fL (7.4-10.4); Platelet Count 181 10x3/uL (130-400); RBC Distribution Width 13.5 % (11.5-14.5); Red Blood Cell (RBC) Count 4.42 mill/uL (4.20-5.40); White Blood Cell (WBC) Count 5.2 10x3/uL (4.8-10.8)
[2022-10-10 04:32] LABS: ALT (SGPT) 14 U/L (8-55); AST (SGOT) 30 U/L (5-34); Albumin 3.8 g/dL (3.4-4.8); Alkaline Phosphatase 59 U/L (40-110); Anion Gap 14 mmol/L (10-20); BUN (Urea Nitrogen) 30 mg/dL (9.8-20.1); Bilirubin, Total 0.5 mg/dL (0.2-1.2); Calc. Creatinine Clearance 35 mL/min (70-130); Calcium 8.8 mg/dL (7.8-10.44); Carbon Dioxide 21 mmol/L (23-31); Chloride 105 mmol/L (98-107); Estimated GFR 32; Globulin 3.4 g/dL (2.4-3.5); Glucose 109 mg/dL (83-110); Potassium 4.6 mmol/L (3.5-5.1); Protein, Total 7.2 g/dL (5.8-8.1); Sodium 135 mmol/L (136-145)
[2022-10-10] MEDS: Levothyroxine Sodium 100 MCG TAB PO SCH (06:42)
[2022-10-10 07:33] VITALS: BMI 29.7
[2022-10-10] MEDS: Atorvastatin Calcium 40 MG TAB PO SCH (08:48)
[2022-10-10] MEDS: Doxycycline 100 MG CAP PO SCH ×2 (08:48→20:53)
[2022-10-10] MEDS: Aspirin Chewable 81 MG TAB PO SCH (08:49)
[2022-10-10] MEDS: Carvedilol 3.125 MG TAB PO SCH ×2 (09:20→18:16)
[2022-10-10] MEDS ORDERED: Lactated Ringer's 500 ML IV SCH (09:30)
[2022-10-10] MEDS: Sacubitril 49 MG/Valsartan 51 MG TABLET PO SCH ×2 (10:01→20:53)
[2022-10-10] MEDS: Acetaminophen/Codeine 30-300mg Tablet PO PRN ×2 (20:53→22:41)
[2022-10-10] MEDS: ALPRAZolam 0.5 MG TAB PO PRN (20:53)
[2022-10-11 04:46] LABS: #Eosinphils 0.2 thou/uL (0.0-0.7); #Lymphocytes 1.7 thou/uL (1.20-3.40); #Monocytes 0.6 thou/uL (0.11-0.59); #Neutrophils 1.8 thou/uL (1.40-6.50); %Basophils 0.2 % (0.0-1.0); %Eosinophils 3.9 % (0.0-10.0); %Lymphocytes 39.8 % (21.0-51.0); %Monocytes 13.6 % (0.0-10.0); %Neutrophils 42.5 % (42.0-75.0); Hemoglobin 12.2 g/dL (12.0-16.0); Mean Corpuscular Hemoglobin 30.6 pg (27.0-31.0); Mean Corpuscular Volume 92.5 fl (78.0-98.0); Mean Platelet Volume 8.4 fL (7.4-10.4); Platelet Count 132 10x3/uL (130-400); RBC Distribution Width 13.3 % (11.5-14.5); Red Blood Cell (RBC) Count 3.99 mill/uL (4.20-5.40); White Blood Cell (WBC) Count 4.3 10x3/uL (4.8-10.8)
[2022-10-11 05:11] LABS: ALT (SGPT) 13 U/L (8-55); AST (SGOT) 26 U/L (5-34); Albumin 3.4 g/dL (3.4-4.8); Alkaline Phosphatase 57 U/L (40-110); Anion Gap 12 mmol/L (10-20); BUN (Urea Nitrogen) 25 mg/dL (9.8-20.1); Bilirubin, Total 0.5 mg/dL (0.2-1.2); Calc. Creatinine Clearance 38 mL/min (70-130); Calcium 8.5 mg/dL (7.8-10.44); Carbon Dioxide 24 mmol/L (23-31); Chloride 104 mmol/L (98-107); Estimated GFR 36; Glucose 97 mg/dL (83-110); Potassium 4.4 mmol/L (3.5-5.1); Protein, Total 6.4 g/dL (5.8-8.1); Sodium 136 mmol/L (136-145)
[2022-10-11] MEDS: Levothyroxine Sodium 100 MCG TAB PO SCH (05:11)
[2022-10-11] MEDS: Doxycycline 100 MG CAP PO SCH (09:36)
[2022-10-11] MEDS: Carvedilol 3.125 MG TAB PO SCH (09:36)
[2022-10-11] MEDS: Aspirin Chewable 81 MG TAB PO SCH (09:37)
[2022-10-11] MEDS: Sacubitril 49 MG/Valsartan 51 MG TABLET PO SCH (09:37)
[2022-10-11] MEDS: Atorvastatin Calcium 40 MG TAB PO SCH (09:37)
[2022-10-11 12:04] VITALS: BP 102/58; TEMP 97.6
== END 2022-10-11 15:29 | disposition home health service (06) | DRG 226 ==
LOC: ERS 18:05 → INTOOBSV 21:13 → 2NO 21:13 → OBSVTOIN 10-07 14:40
PROVIDERS: ADMIT Family Medicine; ATTEND Family Medicine
PROC: 0JH608Z Insertion of Defibrillator Generator into Chest Subcutaneous Tissue and Fascia, Open Approach (ICD-10-PCS; principal; 2022-10-09)
PROC: 02HK3KZ Insertion of Defibrillator Lead into Right Ventricle, Percutaneous Approach (ICD-10-PCS; 2022-10-09)
DX: I13.0 Hypertensive heart and chronic kidney disease with heart failure and stage 1 through stage 4 chronic kidney disease, or unspecified chronic kidney disease (principal); I50.23 Acute on chronic systolic (congestive) heart failure; J96.01 Acute respiratory failure with hypoxia; C18.9 Malignant neoplasm of colon, unspecified; N17.9 Acute kidney failure, unspecified; E87.20 Acidosis, unspecified; E87.1 Hypo-osmolality and hyponatremia; I25.10 Atherosclerotic heart disease of native coronary artery without angina pectoris; N18.30 Chronic kidney disease, stage 3 unspecified; J44.9 Chronic obstructive pulmonary disease, unspecified; Z51.5 Encounter for palliative care; E11.9 Type 2 diabetes mellitus without complications; I25.5 Ischemic cardiomyopathy; E78.5 Hyperlipidemia, unspecified; E03.9 Hypothyroidism, unspecified; R53.81 Other malaise; Z99.81 Dependence on supplemental oxygen; Z98.890 Other specified postprocedural states; Z95.5 Presence of coronary angioplasty implant and graft; Z82.49 Family history of ischemic heart disease and other diseases of the circulatory system; I25.2 Old myocardial infarction; Z86.73 Personal history of transient ischemic attack (TIA), and cerebral infarction without residual deficits; Z88.0 Allergy status to penicillin; Z88.2 Allergy status to sulfonamides; Z88.8 Allergy status to other drugs, medicaments and biological substances; Z90.710 Acquired absence of both cervix and uterus; Z90.89 Acquired absence of other organs; Z79.899 Other long term (current) drug therapy; Z79.82 Long term (current) use of aspirin; Z87.891 Personal history of nicotine dependence; Z79.890 Hormone replacement therapy; Z90.49 Acquired absence of other specified parts of digestive tract; Z20.822 Contact with and (suspected) exposure to COVID-19
CPT/HCPCS: 33249; 36415; 36416; 71045; 71275; 75820; 80053; 80061; 83036; 83880; 84439; 84443; 84484; 85025; 85379; 85730; 93005; 93306; 96372; 96374; 96376; 99152; 99153; G0378; J1580; J1650; J1940; J1956; J2001; J2250; J3010; J3370; J3490; J7120; Q9967; U0003; U0005

== ENCOUNTER 2022-12-19 18:08 | Inpatient (IN) | payer OTHER ==
[~2022-12-19 18:08] MED LIST: Iopamidol-370 76% 500 ML MDV (1 ML CHARGE) ONE
[2022-12-19 18:35] LABS: #Basophils 0.1 thou/uL (0.0-0.2); #Eosinphils 0.1 thou/uL (0.0-0.7); #Monocytes 0.9 thou/uL (0.11-0.59); #Neutrophils 6.1 thou/uL (1.40-6.50); %Basophils 0.6 % (0.0-1.0); %Eosinophils 0.9 % (0.0-10.0); %Lymphocytes 17.1 % (21.0-51.0); %Neutrophils 70.8 % (42.0-75.0); Hemoglobin 11.6 g/dL (12.0-16.0); Mean Corpuscular HGB CONC 32.5 g/dL (32.0-36.0); Mean Corpuscular Hemoglobin 29.4 pg (27.0-31.0); Mean Corpuscular Volume 90.4 fl (78.0-98.0); Platelet Count 245 10x3/uL (130-400); RBC Distribution Width 15.3 % (11.5-14.5); Red Blood Cell (RBC) Count 3.95 mill/uL (4.20-5.40); White Blood Cell (WBC) Count 8.7 10x3/uL (4.8-10.8)
[2022-12-19 19:00] LABS: ALT (SGPT) 16 U/L (8-55); AST (SGOT) 33 U/L (5-34); Albumin 4.2 g/dL (3.4-4.8); Alkaline Phosphatase 70 U/L (40-110); Anion Gap 12 mmol/L (10-20); BUN (Urea Nitrogen) 19 mg/dL (9.8-20.1); Bilirubin, Total 0.4 mg/dL (0.2-1.2); Calc. Creatinine Clearance 0 mL/min (70-130); Calcium 9.7 mg/dL (7.8-10.44); Carbon Dioxide 19 mmol/L (23-31); Chloride 110 mmol/L (98-107); Estimated GFR 40; Globulin 3.9 g/dL (2.4-3.5); Glucose 129 mg/dL (83-110); Potassium 4.7 mmol/L (3.5-5.1); Protein, Total 8.1 g/dL (5.8-8.1); Sodium 136 mmol/L (136-145)
[2022-12-19] MEDS ORDERED: Ondansetron PF 4 MG/2 ML Vial ONE (19:08)
[2022-12-19] MEDS ORDERED: Nitroglycerin 0.4 MG TAB 1 EACH ONE (19:08)
[2022-12-19 19:20] LABS: CKMB 3.4 ng/mL (0-6.6)
[2022-12-19] MEDS ORDERED: Morphine 4 MG/ML VIAL ONE (19:54)
[2022-12-19 21:32] LABS: Troponin I 2.009 ng/mL (< 0.028)
[2022-12-19] MEDS ORDERED: Nitroglycerin 50 MG/250 ML BOT 250 ML ONE (21:57)
[2022-12-19] MEDS ORDERED: Heparin 10,000 UNITS/ 10 ML VIAL ONE (21:57)
[2022-12-19] MEDS ORDERED: Heparin 25,000 units/D5W 500 ML ONE (21:57)
[2022-12-19 22:11] LABS: PTT 29.9 sec (22.9-36.1); Prothrombin Time 13.7 sec (12.0-14.7)
[2022-12-19] MEDS ORDERED: Morphine 2 MG/ML VIAL ONE (22:14)
[2022-12-19] MEDS ORDERED: Aspirin Chewable 81 MG TAB ONE (22:14)
[2022-12-19] MEDS ORDERED: Ondansetron ODT 4 MG TAB PO PRN (23:53)
[2022-12-19] MEDS ORDERED: Senokot S 8.6-50 MG TAB PO PRN (23:53)
[2022-12-19] MEDS ORDERED: Calcium Carbonate 500 MG ChewTAB PO PRN (23:53)
[2022-12-20 00:13] LABS: SARS-CoV-2 NAA Rapid Test Not Detected (NotDetected)
[2022-12-20 01:49] LABS: Troponin I 8.428 ng/mL (< 0.028)
[2022-12-20] MEDS ORDERED: Acetaminophen 325 MG TAB ONE (04:08)
[2022-12-20] MEDS: Acetaminophen 325 MG TAB PO PRN ×2 (04:11→10:56)
[2022-12-20 04:22] LABS: #Basophils 0.1 thou/uL (0.0-0.2); #Eosinphils 0.1 thou/uL (0.0-0.7); #Neutrophils 4.7 thou/uL (1.40-6.50); %Basophils 0.7 % (0.0-1.0); %Eosinophils 1.2 % (0.0-10.0); %Lymphocytes 21.4 % (21.0-51.0); %Monocytes 13.3 % (0.0-10.0); %Neutrophils 62.9 % (42.0-75.0); Hemoglobin 10.8 g/dL (12.0-16.0); Mean Corpuscular HGB CONC 31.9 g/dL (32.0-36.0); Mean Corpuscular Hemoglobin 28.5 pg (27.0-31.0); Mean Corpuscular Volume 89.4 fl (78.0-98.0); Mean Platelet Volume 9.9 fL (7.4-10.4); Platelet Count 224 10x3/uL (130-400); RBC Distribution Width 15.5 % (11.5-14.5); Red Blood Cell (RBC) Count 3.79 mill/uL (4.20-5.40); White Blood Cell (WBC) Count 7.5 10x3/uL (4.8-10.8)
[2022-12-20 04:51] LABS: Anion Gap 12 mmol/L (10-20); BUN (Urea Nitrogen) 19 mg/dL (9.8-20.1); Calc. Creatinine Clearance 0 mL/min (70-130); Calcium 9.2 mg/dL (7.8-10.44); Carbon Dioxide 23 mmol/L (23-31); Chloride 107 mmol/L (98-107); Estimated GFR 43; Glucose 123 mg/dL (83-110); Potassium 4.3 mmol/L (3.5-5.1); Sodium 138 mmol/L (136-145)
[2022-12-20 04:52] LABS: PTT 132.4 sec (22.9-36.1)
[2022-12-20] MEDS ORDERED: ALPRAZolam 0.25 MG TAB ONE (05:15)
[2022-12-20] MEDS: ALPRAZolam 0.5 MG TAB PO PRN (05:47)
[2022-12-20 06:38] VITALS: BMI 30.4
[2022-12-20] MEDS ORDERED: Nitroglycerin 50 MG/250 ML BOT 250 ML IVPB SCH (07:45)
[2022-12-20] MEDS ORDERED: Heparin 10,000 UNITS/ 10 ML VIAL SLOW IVP SCH (07:45)
[2022-12-20 09:16] LABS: Troponin I 40.347 ng/mL (< 0.028)
[2022-12-20] MEDS: Morphine 2 MG/ML VIAL SLOW IVP PRN (10:55)
[2022-12-20] MEDS: busPIRone HCl 5 MG TAB PO SCH ×2 (10:56→21:33)
[2022-12-20] MEDS: Atorvastatin Calcium 40 MG TAB PO SCH (10:57)
[2022-12-20] MEDS: Clopidogrel Bisulfate 75 MG TAB PO SCH (10:57)
[2022-12-20] MEDS: Aspirin Chewable 81 MG TAB PO SCH (10:57)
[2022-12-20] MEDS: Levothyroxine Sodium 100 MCG TAB PO SCH (11:03)
[2022-12-20] MEDS: traZODone HCl 50 MG TAB PO PRN (21:33)
[2022-12-20] MEDS: Melatonin 3 MG TAB PO PRN (21:33)
[2022-12-20] MEDS: Heparin 25,000 units/D5W 500 ML IV SCH (23:24)
[2022-12-21] MEDS: Morphine 2 MG/ML VIAL SLOW IVP PRN ×2 (01:14→20:22)
[2022-12-21] MEDS ORDERED: Sodium Chloride 0.9% 500 ML IV SCH (03:00)
[2022-12-21] MEDS: Levothyroxine Sodium 100 MCG TAB PO SCH (06:00)
[2022-12-21] MEDS: Atorvastatin Calcium 40 MG TAB PO SCH (08:13)
[2022-12-21] MEDS: Clopidogrel Bisulfate 75 MG TAB PO SCH (08:13)
[2022-12-21] MEDS: busPIRone HCl 5 MG TAB PO SCH ×2 (08:14→20:22)
[2022-12-21] MEDS: Nitroglycerin 2% Ointment 1 INCH/1 GM Packet TOP SCH ×2 (08:14→20:22)
[2022-12-21] MEDS: Aspirin Chewable 81 MG TAB PO SCH (08:14)
[2022-12-21] MEDS: Ferrous Gluconate 324 MG TAB PO SCH (08:14)
[2022-12-21 15:49] LABS: Troponin I 39.076 ng/mL (< 0.028)
[2022-12-21] MEDS: ALPRAZolam 0.5 MG TAB PO PRN (16:15)
[2022-12-21] MEDS: traZODone HCl 50 MG TAB PO PRN (20:22)
[2022-12-22] MEDS: Heparin 25,000 units/D5W 500 ML IV SCH (00:23)
[2022-12-22] MEDS ORDERED: Sodium Chloride 0.9% 500 ML IV SCH (04:45)
[2022-12-22] MEDS: Levothyroxine Sodium 100 MCG TAB PO SCH (04:54)
[2022-12-22] MEDS: Aspirin Chewable 81 MG TAB PO SCH (09:19)
[2022-12-22] MEDS: Nitroglycerin 2% Ointment 1 INCH/1 GM Packet TOP SCH (09:20)
[2022-12-22] MEDS: Clopidogrel Bisulfate 75 MG TAB PO SCH (09:20)
[2022-12-22] MEDS: Atorvastatin Calcium 40 MG TAB PO SCH (09:20)
[2022-12-22] MEDS: busPIRone HCl 5 MG TAB PO SCH ×2 (09:20→20:09)
[2022-12-22] MEDS ORDERED: Nitroglycerin 2% Ointment 1 INCH/1 GM Packet TOP PRN (12:08)
[2022-12-22] MEDS ORDERED: Lactated Ringer's 500 ML IV SCH ×2 (12:30→12:45)
[2022-12-22] MEDS: Melatonin 3 MG TAB PO PRN (20:09)
[2022-12-22] MEDS: Acetaminophen 325 MG TAB PO PRN (22:33)
[2022-12-23] MEDS: traZODone HCl 50 MG TAB PO PRN ×2 (00:16→20:29)
[2022-12-23] MEDS: Heparin 25,000 units/D5W 500 ML IV SCH (04:09)
[2022-12-23 04:29] LABS: #Eosinphils 0.1 thou/uL (0.0-0.7); #Monocytes 0.8 thou/uL (0.11-0.59); #Neutrophils 3.9 thou/uL (1.40-6.50); %Basophils 0.5 % (0.0-1.0); %Eosinophils 1.7 % (0.0-10.0); %Lymphocytes 19.5 % (21.0-51.0); %Monocytes 12.6 % (0.0-10.0); %Neutrophils 64.9 % (42.0-75.0); Hemoglobin 9.5 g/dL (12.0-16.0); Mean Corpuscular HGB CONC 31.4 g/dL (32.0-36.0); Mean Corpuscular Hemoglobin 29.1 pg (27.0-31.0); Mean Corpuscular Volume 92.7 fl (78.0-98.0); Mean Platelet Volume 10.7 fL (7.4-10.4); Platelet Count 189 10x3/uL (130-400); Red Blood Cell (RBC) Count 3.27 mill/uL (4.20-5.40)
[2022-12-23] MEDS: Levothyroxine Sodium 100 MCG TAB PO SCH (04:29)
[2022-12-23 05:00] LABS: Anion Gap 13 mmol/L (10-20); Carbon Dioxide 20 mmol/L (23-31); Chloride 108 mmol/L (98-107); Potassium 4.1 mmol/L (3.5-5.1); Sodium 137 mmol/L (136-145)
[2022-12-23 05:01] LABS: BUN (Urea Nitrogen) 14 mg/dL (9.8-20.1); Calc. Creatinine Clearance 49 mL/min (70-130); Calcium 8.7 mg/dL (7.8-10.44); Estimated GFR 46; Glucose 100 mg/dL (83-110)
[2022-12-23] MEDS: Acetaminophen 325 MG TAB PO PRN (06:29)
[2022-12-23] MEDS: ALPRAZolam 0.5 MG TAB PO PRN ×2 (06:29→23:52)
[2022-12-23] MEDS: Clopidogrel Bisulfate 75 MG TAB PO SCH (09:57)
[2022-12-23] MEDS: Atorvastatin Calcium 40 MG TAB PO SCH (09:57)
[2022-12-23] MEDS: Aspirin Chewable 81 MG TAB PO SCH (09:57)
[2022-12-23] MEDS: busPIRone HCl 5 MG TAB PO SCH ×2 (09:57→20:30)
[2022-12-23] MEDS: Ferrous Gluconate 324 MG TAB PO SCH (09:57)
[2022-12-23] MEDS: Melatonin 3 MG TAB PO PRN (20:30)
[2022-12-24 05:21] LABS: Anion Gap 13 mmol/L (10-20); BUN (Urea Nitrogen) 19 mg/dL (9.8-20.1); Calc. Creatinine Clearance 45 mL/min (70-130); Calcium 9.1 mg/dL (7.8-10.44); Carbon Dioxide 23 mmol/L (23-31); Chloride 106 mmol/L (98-107); Estimated GFR 42; Glucose 108 mg/dL (83-110); Potassium 4.6 mmol/L (3.5-5.1); Sodium 137 mmol/L (136-145)
[2022-12-24] MEDS: Levothyroxine Sodium 100 MCG TAB PO SCH (06:00)
[2022-12-24] MEDS: Atorvastatin Calcium 40 MG TAB PO SCH (08:56)
[2022-12-24] MEDS: Aspirin Chewable 81 MG TAB PO SCH (08:56)
[2022-12-24] MEDS: Clopidogrel Bisulfate 75 MG TAB PO SCH (08:56)
[2022-12-24] MEDS: busPIRone HCl 5 MG TAB PO SCH ×2 (08:56→21:00)
[2022-12-24] MEDS: Melatonin 3 MG TAB PO PRN (21:00)
[2022-12-24] MEDS: traZODone HCl 50 MG TAB PO PRN (21:00)
[2022-12-25] MEDS: Levothyroxine Sodium 100 MCG TAB PO SCH (05:22)
[2022-12-25 05:38] LABS: Anion Gap 12 mmol/L (10-20); BUN (Urea Nitrogen) 21 mg/dL (9.8-20.1); Calc. Creatinine Clearance 43 mL/min (70-130); Calcium 9.2 mg/dL (7.8-10.44); Carbon Dioxide 26 mmol/L (23-31); Chloride 103 mmol/L (98-107); Estimated GFR 39; Glucose 85 mg/dL (83-110); Potassium 4.5 mmol/L (3.5-5.1); Sodium 136 mmol/L (136-145)
[2022-12-25] MEDS: Ferrous Gluconate 324 MG TAB PO SCH (09:20)
[2022-12-25] MEDS: Clopidogrel Bisulfate 75 MG TAB PO SCH (09:20)
[2022-12-25] MEDS: busPIRone HCl 5 MG TAB PO SCH ×2 (09:20→21:04)
[2022-12-25] MEDS: Polyethylene Glycol 3350 17 GM Packet PO SCH (09:20)
[2022-12-25] MEDS: Atorvastatin Calcium 40 MG TAB PO SCH (09:21)
[2022-12-25] MEDS: Aspirin Chewable 81 MG TAB PO SCH (09:21)
[2022-12-25] MEDS: traZODone HCl 50 MG TAB PO PRN (21:04)
[2022-12-25] MEDS: Melatonin 3 MG TAB PO PRN (21:04)
[2022-12-25] MEDS: ALPRAZolam 0.5 MG TAB PO PRN (22:34)
[2022-12-26 04:38] LABS: Anion Gap 10 mmol/L (10-20); BUN (Urea Nitrogen) 20 mg/dL (9.8-20.1); Calc. Creatinine Clearance 46 mL/min (70-130); Calcium 9.2 mg/dL (7.8-10.44); Carbon Dioxide 25 mmol/L (23-31); Chloride 103 mmol/L (98-107); Estimated GFR 43; Glucose 97 mg/dL (83-110); Potassium 4.3 mmol/L (3.5-5.1); Sodium 134 mmol/L (136-145)
[2022-12-26] MEDS: Levothyroxine Sodium 100 MCG TAB PO SCH (05:41)
[2022-12-26] MEDS: Polyethylene Glycol 3350 17 GM Packet PO SCH (09:43)
[2022-12-26] MEDS: Clopidogrel Bisulfate 75 MG TAB PO SCH (09:43)
[2022-12-26] MEDS: busPIRone HCl 5 MG TAB PO SCH ×2 (09:43→20:06)
[2022-12-26] MEDS: Aspirin Chewable 81 MG TAB PO SCH (09:43)
[2022-12-26] MEDS: Atorvastatin Calcium 40 MG TAB PO SCH (09:43)
[2022-12-26] MEDS: Melatonin 3 MG TAB PO PRN (20:06)
[2022-12-26] MEDS: ALPRAZolam 0.5 MG TAB PO PRN (20:07)
[2022-12-26] MEDS: traZODone HCl 50 MG TAB PO PRN (23:22)
[2022-12-26] MEDS: Acetaminophen 325 MG TAB PO PRN (23:22)
[2022-12-27] MEDS: Morphine 2 MG/ML VIAL SLOW IVP PRN (02:22)
[2022-12-27 04:45] LABS: #Eosinphils 0.1 thou/uL (0.0-0.7); #Monocytes 0.7 thou/uL (0.11-0.59); #Neutrophils 1.9 thou/uL (1.40-6.50); %Eosinophils 3.1 % (0.0-10.0); %Monocytes 15.9 % (0.0-10.0); %Neutrophils 46.5 % (42.0-75.0); Hemoglobin 10.1 g/dL (12.0-16.0); Mean Corpuscular HGB CONC 31.9 g/dL (32.0-36.0); Mean Corpuscular Hemoglobin 28.5 pg (27.0-31.0); Mean Corpuscular Volume 89.5 fl (78.0-98.0); Mean Platelet Volume 9.9 fL (7.4-10.4); Platelet Count 217 10x3/uL (130-400); RBC Distribution Width 14.6 % (11.5-14.5); Red Blood Cell (RBC) Count 3.54 mill/uL (4.20-5.40); White Blood Cell (WBC) Count 4.2 10x3/uL (4.8-10.8)
[2022-12-27 05:12] LABS: Anion Gap 15 mmol/L (10-20); BUN (Urea Nitrogen) 22 mg/dL (9.8-20.1); Calc. Creatinine Clearance 44 mL/min (70-130); Calcium 9.1 mg/dL (7.8-10.44); Carbon Dioxide 22 mmol/L (23-31); Chloride 103 mmol/L (98-107); Estimated GFR 40; Glucose 99 mg/dL (83-110); Potassium 4.2 mmol/L (3.5-5.1); Sodium 136 mmol/L (136-145)
[2022-12-27] MEDS: Levothyroxine Sodium 100 MCG TAB PO SCH (06:40)
[2022-12-27] MEDS: Polyethylene Glycol 3350 17 GM Packet PO SCH (09:22)
[2022-12-27] MEDS: Aspirin Chewable 81 MG TAB PO SCH (09:26)
[2022-12-27] MEDS: Atorvastatin Calcium 40 MG TAB PO SCH (09:26)
[2022-12-27] MEDS: Clopidogrel Bisulfate 75 MG TAB PO SCH (09:26)
[2022-12-27] MEDS: Ferrous Gluconate 324 MG TAB PO SCH (09:26)
[2022-12-27] MEDS: busPIRone HCl 5 MG TAB PO SCH (09:26)
[2022-12-27] MEDS ORDERED: Bisacodyl 5 MG TAB PO SCH (09:30)
[2022-12-27 14:48] VITALS: BP 101/59; TEMP 97.6
[2022-12-27] MEDS ORDERED: Senokot S 8.6-50 MG TAB PO SCH (21:00)
== END 2022-12-27 14:45 | DRG 281 ==
LOC: ERS 18:08 → ERHOLD 22:13 → CCU 12-20 06:03 → 2NO 12-21 17:18
PROVIDERS: ADMIT Student in an Organized Health Care Education/Training Program; ATTEND Student in an Organized Health Care Education/Training Program
DX: I21.4 Non-ST elevation (NSTEMI) myocardial infarction (principal); I13.0 Hypertensive heart and chronic kidney disease with heart failure and stage 1 through stage 4 chronic kidney disease, or unspecified chronic kidney disease; I50.22 Chronic systolic (congestive) heart failure; I22.2 Subsequent non-ST elevation (NSTEMI) myocardial infarction; N18.31 Chronic kidney disease, stage 3a; E03.9 Hypothyroidism, unspecified; I25.10 Atherosclerotic heart disease of native coronary artery without angina pectoris; J44.9 Chronic obstructive pulmonary disease, unspecified; F32.A Depression, unspecified; D63.1 Anemia in chronic kidney disease; Z66 Do not resuscitate; Z20.822 Contact with and (suspected) exposure to COVID-19; Z88.8 Allergy status to other drugs, medicaments and biological substances; Z88.0 Allergy status to penicillin; Z88.2 Allergy status to sulfonamides; Z79.82 Long term (current) use of aspirin; Z79.899 Other long term (current) drug therapy; I25.2 Old myocardial infarction; Z86.73 Personal history of transient ischemic attack (TIA), and cerebral infarction without residual deficits; Z85.038 Personal history of other malignant neoplasm of large intestine; Z95.810 Presence of automatic (implantable) cardiac defibrillator; Z90.49 Acquired absence of other specified parts of digestive tract; Z87.891 Personal history of nicotine dependence
CPT/HCPCS: 36415; 36416; 51702; 71045; 71275; 80048; 80053; 82553; 84484; 85025; 85610; 85730; 93005; 93010; 96365; 96366; 96375; 96376; J1644; J1650; J2270; J2272; J2405; J7030; J7120; Q0162; Q9967

== ENCOUNTER 2023-02-07 16:55 | Inpatient (IN) | payer OTHER ==
[2023-02-07 18:06] LABS: #Monocytes 0.7 thou/uL (0.11-0.59); #Neutrophils 3.4 thou/uL (1.40-6.50); %Basophils 0.4 % (0.0-1.0); %Eosinophils 0.2 % (0.0-10.0); %Lymphocytes 18.1 % (21.0-51.0); %Monocytes 14.4 % (0.0-10.0); %Neutrophils 66.5 % (42.0-75.0); Hematocrit 29.6 % (36.0-47.0); Hemoglobin 9.2 g/dL (12.0-16.0); Mean Corpuscular HGB CONC 31.1 g/dL (32.0-36.0); Mean Corpuscular Hemoglobin 26.4 pg (27.0-31.0); Mean Corpuscular Volume 85.1 fl (78.0-98.0); Mean Platelet Volume 10.7 fL (7.4-10.4); Platelet Count 217 10x3/uL (130-400); RBC Distribution Width 15.8 % (11.5-14.5); Red Blood Cell (RBC) Count 3.48 mill/uL (4.20-5.40); White Blood Cell (WBC) Count 5.1 10x3/uL (4.8-10.8)
[2023-02-07 18:38] LABS: ALT (SGPT) 451 U/L (8-55); AST (SGOT) 650 U/L (5-34); Albumin 3.8 g/dL (3.4-4.8); Alkaline Phosphatase 93 U/L (40-110); Anion Gap 14 mmol/L (10-20); BUN (Urea Nitrogen) 47 mg/dL (9.8-20.1); Calc. Creatinine Clearance 0 mL/min (70-130); Calcium 8.8 mg/dL (7.8-10.44); Carbon Dioxide 21 mmol/L (23-31); Chloride 99 mmol/L (98-107); Estimated GFR 23; Globulin 2.9 g/dL (2.4-3.5); Glucose 107 mg/dL (83-110); Lipase 61 U/L (8-78); Potassium 4.3 mmol/L (3.5-5.1); Protein, Total 6.7 g/dL (5.8-8.1); Sodium 130 mmol/L (136-145)
[2023-02-07] MEDS ORDERED: fentaNYL 50 mcg/mL 1 mL Vial ONE (18:45)
[2023-02-07] MEDS ORDERED: Aspirin 325 MG TAB ONE (18:46)
[2023-02-07 18:52] LABS: CKMB 2.9 ng/mL (0-6.6)
[2023-02-07 18:54] LABS: Bilirubin Negative (Negative); Blood, Urine Trace (Negative); Glucose, Urine (Dipstick) Negative (Negative); Ketone, Urine Negative (Negative); Leukocyte Moderate (Negative); Nitrite Negative (Negative); Protein, Urine (Dipstick) 30 mg/dL (Neg-Trace); Specific Gravity, Urine 1.025 (1.005-1.030); pH, Urine 5.5 (5.0-9.0)
[2023-02-07 18:59] LABS: Clarity Clear (Clear)
[2023-02-07 19:00] LABS: Bacteria/HPF 3+ HPF (None Seen); CAUTI Indications for Culture Dysuria,urgency,freq; RBC/HPF 0-3 HPF (0-3); Squamous Epithelial 0-3 HPF (0-3)
[2023-02-07 19:01] LABS: Urine Culture Reflex No No
[2023-02-07] MEDS ORDERED: Promethazine HCl 25 MG/ML VIAL ONE (19:22)
[2023-02-07] MEDS ORDERED: LORazepam 2 MG/ML SYR.(CARPUJECT) ONE (19:49)
[2023-02-07 20:06] LABS: INR-International Normal Ratio 1.6; PTT 31.1 sec (22.9-36.1); Prothrombin Time 19.5 sec (12.0-14.7)
[2023-02-07 21:11] LABS: Troponin I 0.095 ng/mL (< 0.028)
[2023-02-07] MEDS: Heparin 10,000 UNITS/ 10 ML VIAL SLOW IVP SCH (21:58)
[2023-02-07] MEDS ORDERED: Lactated Ringer's 1,000 ML IV SCH (22:00)
[2023-02-07] MEDS: Heparin 25,000 units/D5W 500 ML IV SCH (22:00)
[2023-02-07] MEDS ORDERED: Gabapentin 300 MG CAP PO SCH (22:00)
[2023-02-07] MEDS ORDERED: Acetaminophen 325 MG TAB PO PRN (22:25)
[2023-02-07] MEDS ORDERED: dilTIAZem 25 MG/5 ML VIAL SLOW IVP SCH (22:30)
[2023-02-07] MEDS: traZODone HCl 50 MG TAB PO PRN (22:49)
[2023-02-07 23:59] LABS: Troponin I 0.111 ng/mL (< 0.028)
[2023-02-08] MEDS: ALPRAZolam 0.5 MG TAB PO PRN (00:05)
[2023-02-08] MEDS ORDERED: dilTIAZem 25 MG/5 ML VIAL SLOW IVP SCH (03:15)
[2023-02-08 05:17] LABS: #Basophils 0.1 thou/uL (0.0-0.2); #Monocytes 1.2 thou/uL (0.11-0.59); #Neutrophils 3.9 thou/uL (1.40-6.50); %Basophils 0.8 % (0.0-1.0); %Eosinophils 0.5 % (0.0-10.0); %Lymphocytes 22.4 % (21.0-51.0); %Monocytes 17.9 % (0.0-10.0); %Neutrophils 57.9 % (42.0-75.0); Hematocrit 30.3 % (36.0-47.0); Hemoglobin 9.2 g/dL (12.0-16.0); Mean Corpuscular HGB CONC 30.4 g/dL (32.0-36.0); Mean Corpuscular Hemoglobin 25.9 pg (27.0-31.0); Mean Corpuscular Volume 85.4 fl (78.0-98.0); Mean Platelet Volume 11.2 fL (7.4-10.4); Platelet Count 213 10x3/uL (130-400); RBC Distribution Width 15.9 % (11.5-14.5); Red Blood Cell (RBC) Count 3.55 mill/uL (4.20-5.40); White Blood Cell (WBC) Count 6.7 10x3/uL (4.8-10.8)
[2023-02-08 05:45] LABS: ALT (SGPT) 487 U/L (8-55); AST (SGOT) 607 U/L (5-34); Albumin 3.7 g/dL (3.4-4.8); Alkaline Phosphatase 91 U/L (40-110); Anion Gap 15 mmol/L (10-20); BUN (Urea Nitrogen) 50 mg/dL (9.8-20.1); Bilirubin, Total 1.1 mg/dL (0.2-1.2); Calc. Creatinine Clearance 22 mL/min (70-130); Calcium 8.7 mg/dL (7.8-10.44); Carbon Dioxide 20 mmol/L (23-31); Chloride 101 mmol/L (98-107); Estimated GFR 20; Globulin 2.7 g/dL (2.4-3.5); Glucose 106 mg/dL (83-110); Potassium 4.3 mmol/L (3.5-5.1); Protein, Total 6.4 g/dL (5.8-8.1); Sodium 132 mmol/L (136-145)
[2023-02-08] MEDS: Levothyroxine Sodium 100 MCG TAB PO SCH (05:55)
[2023-02-08 07:15] LABS: PTT Greater than 250.0 sec (22.9-36.1)
[2023-02-08] MEDS: Mometasone 100 MCG/Formoterol 5 MCG 120 PUFF INHALER INH SCH ×2 (07:39→18:43)
[2023-02-08] MEDS ORDERED: Communication Order-Pharmacy FS SCH (07:53)
[2023-02-08 08:23] LABS: Hematocrit 30.4 % (36.0-47.0); Hemoglobin 9.1 g/dL (12.0-16.0); Platelet Count 205 10x3/uL (130-400)
[2023-02-08] MEDS ORDERED: Atorvastatin Calcium 40 MG TAB PO SCH (09:00)
[2023-02-08] MEDS: busPIRone HCl 5 MG TAB PO SCH ×2 (09:15→20:58)
[2023-02-08] MEDS: Aspirin Chewable 81 MG TAB PO SCH (09:15)
[2023-02-08] MEDS: Clopidogrel Bisulfate 75 MG TAB PO SCH (09:15)
[2023-02-08 09:23] LABS: Troponin I 0.122 ng/mL (< 0.028)
[2023-02-08] MEDS ORDERED: Lactated Ringer's 1,000 ML IV SCH (09:30)
[2023-02-08 10:37] LABS: Creatinine, Urine 109.22 mg/dL (47-110); Sodium, Urine Less than 20 mmol/L (Not Available)
[2023-02-08] MEDS ORDERED: Furosemide 20 MG/2 ML VIAL SLOW IVP SCH (10:45)
[2023-02-08 13:40] LABS: Troponin I 0.089 ng/mL (< 0.028)
[2023-02-08 15:35] LABS: HBCM Index 0.04 S/CO (0-0.79); HBSAg Index 0.29 S/CO (0-0.99); Hep A IgM AB Non-Reactive S/CO (NonReactive); Hep B Surf Ag Non-Reactive S/CO (NonReactive); Hep C IgG Ab Non-Reactive S/CO (NonReactive); Hep C Index 0.08 S/CO (0-0.79); Hepatitis B Core IgM Abs Non-Reactive S/CO (NonReactive)
[2023-02-08] MEDS: Heparin 10,000 UNITS/ 10 ML VIAL SLOW IVP SCH (18:15)
[2023-02-08] MEDS: traZODone HCl 50 MG TAB PO PRN (20:58)
[2023-02-09] MEDS ORDERED: Lidocaine 4% Patch TD SCH (00:45)
[2023-02-09] MEDS: Heparin 25,000 units/D5W 500 ML IV SCH (00:57)
[2023-02-09 01:24] LABS: PTT Greater than 250.0 sec (22.9-36.1)
[2023-02-09] MEDS: ALPRAZolam 0.5 MG TAB PO PRN (03:39)
[2023-02-09] MEDS: Levothyroxine Sodium 100 MCG TAB PO SCH (03:41)
[2023-02-09 05:09] LABS: #Eosinphils 0.1 thou/uL (0.0-0.7); #Monocytes 0.7 thou/uL (0.11-0.59); #Neutrophils 2.6 thou/uL (1.40-6.50); %Basophils 0.9 % (0.0-1.0); %Eosinophils 1.4 % (0.0-10.0); %Lymphocytes 22.6 % (21.0-51.0); %Monocytes 15.9 % (0.0-10.0); %Neutrophils 58.7 % (42.0-75.0); Hematocrit 28.9 % (36.0-47.0); Hemoglobin 8.8 g/dL (12.0-16.0); Mean Corpuscular HGB CONC 30.4 g/dL (32.0-36.0); Mean Corpuscular Hemoglobin 25.5 pg (27.0-31.0); Mean Corpuscular Volume 83.8 fl (78.0-98.0); Mean Platelet Volume 10.7 fL (7.4-10.4); Platelet Count 219 10x3/uL (130-400); Red Blood Cell (RBC) Count 3.45 mill/uL (4.20-5.40); White Blood Cell (WBC) Count 4.4 10x3/uL (4.8-10.8)
[2023-02-09 05:49] LABS: ALT (SGPT) 437 U/L (8-55); AST (SGOT) 424 U/L (5-34); Albumin 3.4 g/dL (3.4-4.8); Alkaline Phosphatase 87 U/L (40-110); Anion Gap 14 mmol/L (10-20); BUN (Urea Nitrogen) 44 mg/dL (9.8-20.1); Bilirubin, Total 0.7 mg/dL (0.2-1.2); Calc. Creatinine Clearance 27 mL/min (70-130); Calcium 8.4 mg/dL (7.8-10.44); Carbon Dioxide 22 mmol/L (23-31); Chloride 100 mmol/L (98-107); Estimated GFR 25; Globulin 2.7 g/dL (2.4-3.5); Glucose 95 mg/dL (83-110); Potassium 3.5 mmol/L (3.5-5.1); Protein, Total 6.1 g/dL (5.8-8.1); Sodium 132 mmol/L (136-145)
[2023-02-09 06:26] LABS: PTT 137.2 sec (22.9-36.1)
[2023-02-09] MEDS ORDERED: Amiodarone 150 MG in Dextrose 5% in Water 100 ML IVPB SCH (08:15)
[2023-02-09] MEDS: Mometasone 100 MCG/Formoterol 5 MCG 120 PUFF INHALER INH SCH ×2 (08:25→20:12)
[2023-02-09] MEDS: Aspirin Chewable 81 MG TAB PO SCH (09:27)
[2023-02-09] MEDS: busPIRone HCl 5 MG TAB PO SCH ×2 (09:28→21:43)
[2023-02-09] MEDS: Clopidogrel Bisulfate 75 MG TAB PO SCH (09:28)
[2023-02-09] MEDS ORDERED: Furosemide 20 MG/2 ML VIAL SLOW IVP SCH (09:45)
[2023-02-09] MEDS ORDERED: Lactated Ringer's 1,000 ML IV SCH (09:45)
[2023-02-09 11:11] LABS: Magnesium 1.9 mg/dL (1.6-2.6); Phosphorus 2.9 mg/dL (2.3-4.7)
[2023-02-09] MEDS: Albuterol 200 PUFF (6.7GM INHALER) INH PRN ×2 (11:58→20:12)
[2023-02-09] MEDS ORDERED: Nitroglycerin 0.4 MG TAB (25 Tab Bottle) ONE (12:09)
[2023-02-09] MEDS: Heparin 10,000 UNITS/ 10 ML VIAL SLOW IVP SCH (12:11)
[2023-02-09] MEDS ORDERED: Magnesium 2 GM/50 ML(in water) 2 GM in Premix Bag 1 BAG IVPB SCH (12:15)
[2023-02-09] MEDS ORDERED: Transdermal Patch Removal TOP SCH (12:45)
[2023-02-09 17:11] LABS: PTT Greater than 250.0 sec (22.9-36.1)
[2023-02-09] MEDS ORDERED: Digoxin 0.5 MG/2 ML AMP SLOW IVP SCH (19:15)
[2023-02-09] MEDS: Ipratropium/Albuterol 3 ML NEB NEB PRN (22:17)
[2023-02-09] MEDS: traZODone HCl 50 MG TAB PO PRN (23:41)
[2023-02-10] MEDS ORDERED: Furosemide 20 MG TAB PO SCH (00:45)
[2023-02-10] MEDS: ALPRAZolam 0.5 MG TAB PO PRN ×2 (00:48→20:04)
[2023-02-10] MEDS ORDERED: Carbidopa/Levodopa 25-100 mg Tablet PO SCH ×2 (02:55→23:25)
[2023-02-10 04:58] LABS: ALT (SGPT) 364 U/L (8-55); AST (SGOT) 292 U/L (5-34); Albumin 3.5 g/dL (3.4-4.8); Alkaline Phosphatase 92 U/L (40-110); Anion Gap 12 mmol/L (10-20); BUN (Urea Nitrogen) 34 mg/dL (9.8-20.1); Bilirubin, Total 0.6 mg/dL (0.2-1.2); Calc. Creatinine Clearance 31 mL/min (70-130); Calcium 8.4 mg/dL (7.8-10.44); Carbon Dioxide 24 mmol/L (23-31); Chloride 100 mmol/L (98-107); Estimated GFR 28; Globulin 2.8 g/dL (2.4-3.5); Glucose 127 mg/dL (83-110); Potassium 3.8 mmol/L (3.5-5.1); Protein, Total 6.3 g/dL (5.8-8.1); Sodium 132 mmol/L (136-145)
[2023-02-10 05:03] LABS: PTT Greater than 250.0 sec (22.9-36.1)
[2023-02-10] MEDS: Levothyroxine Sodium 100 MCG TAB PO SCH (05:19)
[2023-02-10] MEDS: Mometasone 100 MCG/Formoterol 5 MCG 120 PUFF INHALER INH SCH ×2 (07:37→19:37)
[2023-02-10 07:43] LABS: PTT 214.5 sec (22.9-36.1)
[2023-02-10 07:52] LABS: Magnesium 2.3 mg/dL (1.6-2.6)
[2023-02-10] MEDS ORDERED: Polyethylene Glycol 3350 17 GM Packet PO PRN (08:28)
[2023-02-10] MEDS ORDERED: Furosemide 20 MG/2 ML VIAL SLOW IVP SCH ×2 (08:30→16:00)
[2023-02-10] MEDS: busPIRone HCl 5 MG TAB PO SCH ×2 (09:05→20:04)
[2023-02-10] MEDS: Clopidogrel Bisulfate 75 MG TAB PO SCH (09:05)
[2023-02-10] MEDS: Aspirin Chewable 81 MG TAB PO SCH (09:05)
[2023-02-10] MEDS: Amiodarone 450 MG in Dextrose 5% in Water 250 ML IVPB SCH (09:42)
[2023-02-10] MEDS: Lactated Ringer's 1,000 ML IV SCH ×2 (12:02→21:50)
[2023-02-10] MEDS ORDERED: hydrOXYzine 25 MG TAB PO SCH (16:00)
[2023-02-10] MEDS: Albuterol 200 PUFF (6.7GM INHALER) INH PRN (19:35)
[2023-02-10] MEDS: Apixaban 5 MG TAB PO SCH (20:04)
[2023-02-10] MEDS: Ipratropium/Albuterol 3 ML NEB NEB PRN (21:05)
[2023-02-10] MEDS ORDERED: Sertraline 100 MG TAB PO SCH (21:15)
[2023-02-10] MEDS: traZODone HCl 50 MG TAB PO PRN (21:48)
[2023-02-11] MEDS: Amiodarone 450 MG in Dextrose 5% in Water 250 ML IVPB SCH ×2 (00:50→17:52)
[2023-02-11 05:13] LABS: Hematocrit 29.3 % (36.0-47.0); Platelet Count 235 10x3/uL (130-400)
[2023-02-11 05:45] LABS: ALT (SGPT) 60 U/L (8-55); AST (SGOT) 183 U/L (5-34); Albumin 3.6 g/dL (3.4-4.8); Alkaline Phosphatase 99 U/L (40-110); Anion Gap 14 mmol/L (10-20); BUN (Urea Nitrogen) 32 mg/dL (9.8-20.1); Bilirubin, Total 0.7 mg/dL (0.2-1.2); Calc. Creatinine Clearance 33 mL/min (70-130); Calcium 8.6 mg/dL (7.8-10.44); Carbon Dioxide 24 mmol/L (23-31); Chloride 104 mmol/L (98-107); Estimated GFR 28; Globulin 3.1 g/dL (2.4-3.5); Glucose 124 mg/dL (83-110); Potassium 4.2 mmol/L (3.5-5.1); Protein, Total 6.7 g/dL (5.8-8.1); Sodium 138 mmol/L (136-145)
[2023-02-11] MEDS: Levothyroxine Sodium 100 MCG TAB PO SCH (06:19)
[2023-02-11] MEDS: Ipratropium/Albuterol 3 ML NEB NEB PRN (07:58)
[2023-02-11] MEDS: Mometasone 100 MCG/Formoterol 5 MCG 120 PUFF INHALER INH SCH ×2 (08:15→20:01)
[2023-02-11] MEDS ORDERED: Furosemide 20 MG/2 ML VIAL SLOW IVP SCH (08:30)
[2023-02-11] MEDS: busPIRone HCl 5 MG TAB PO SCH ×2 (08:39→20:57)
[2023-02-11] MEDS: Apixaban 5 MG TAB PO SCH (08:39)
[2023-02-11] MEDS: Sertraline 100 MG TAB PO SCH (08:39)
[2023-02-11] MEDS: Clopidogrel Bisulfate 75 MG TAB PO SCH (08:39)
[2023-02-11] MEDS: Aspirin Chewable 81 MG TAB PO SCH (08:39)
[2023-02-11] MEDS ORDERED: Non-Formulary Item 1 EACH (Sertraline Hcl [Sertraline Hcl] 50 MG Tablet) PO SCH (09:00)
[2023-02-11] MEDS: ALPRAZolam 0.5 MG TAB PO PRN (11:44)
[2023-02-11 13:32] LABS: #Monocytes 1.2 thou/uL (0.11-0.59); #Neutrophils 4.7 thou/uL (1.40-6.50); %Basophils 0.3 % (0.0-1.0); %Eosinophils 0.6 % (0.0-10.0); %Lymphocytes 14.9 % (21.0-51.0); %Monocytes 16.5 % (0.0-10.0); %Neutrophils 67.3 % (42.0-75.0); Hematocrit 30.9 % (36.0-47.0); Hemoglobin 9.4 g/dL (12.0-16.0); Mean Corpuscular HGB CONC 30.4 g/dL (32.0-36.0); Mean Corpuscular Hemoglobin 25.9 pg (27.0-31.0); Mean Corpuscular Volume 85.1 fl (78.0-98.0); Mean Platelet Volume 10.2 fL (7.4-10.4); Platelet Count 230 10x3/uL (130-400); Red Blood Cell (RBC) Count 3.63 mill/uL (4.20-5.40)
[2023-02-11 15:21] LABS: Anion Gap 12 mmol/L (10-20); BUN (Urea Nitrogen) 31 mg/dL (9.8-20.1); Calc. Creatinine Clearance 33 mL/min (70-130); Calcium 8.5 mg/dL (7.8-10.44); Carbon Dioxide 17 mmol/L (23-31); Chloride 108 mmol/L (98-107); Estimated GFR 28; Glucose 169 mg/dL (83-110); Potassium 4.4 mmol/L (3.5-5.1); Sodium 133 mmol/L (136-145)
[2023-02-11 15:22] LABS: Iron 22 ug/dL (50-170); Iron Binding Capacity, Total 436 mcg/dL (265-497)
[2023-02-11] MEDS ORDERED: Ferrous Sulfate 325 MG TAB PO SCH (15:45)
[2023-02-11] MEDS ORDERED: Furosemide 40 MG/4 ML VIAL SLOW IVP SCH (15:45)
[2023-02-11] MEDS: Gabapentin 100 MG CAP PO PRN (16:47)
[2023-02-11] MEDS: Albuterol 200 PUFF (6.7GM INHALER) INH PRN (20:00)
[2023-02-11] MEDS: Apixaban 2.5 MG TAB PO SCH (20:57)
[2023-02-12] MEDS: ALPRAZolam 0.5 MG TAB PO PRN (03:58)
[2023-02-12 04:27] LABS: #Monocytes 1.1 thou/uL (0.11-0.59); #Neutrophils 4.2 thou/uL (1.40-6.50); %Basophils 0.5 % (0.0-1.0); %Eosinophils 0.5 % (0.0-10.0); %Lymphocytes 14.1 % (21.0-51.0); %Monocytes 17.2 % (0.0-10.0); %Neutrophils 67.2 % (42.0-75.0); Hematocrit 31.8 % (36.0-47.0); Hemoglobin 9.7 g/dL (12.0-16.0); Mean Corpuscular HGB CONC 30.5 g/dL (32.0-36.0); Mean Corpuscular Hemoglobin 25.9 pg (27.0-31.0); Mean Platelet Volume 10.6 fL (7.4-10.4); Platelet Count 227 10x3/uL (130-400); RBC Distribution Width 16.2 % (11.5-14.5); Red Blood Cell (RBC) Count 3.74 mill/uL (4.20-5.40); White Blood Cell (WBC) Count 6.2 10x3/uL (4.8-10.8)
[2023-02-12 05:05] LABS: ALT (SGPT) 226 U/L (8-55); AST (SGOT) 163 U/L (5-34); Albumin 3.6 g/dL (3.4-4.8); Alkaline Phosphatase 103 U/L (40-110); Anion Gap 14 mmol/L (10-20); BUN (Urea Nitrogen) 33 mg/dL (9.8-20.1); Bilirubin, Total 0.9 mg/dL (0.2-1.2); Calc. Creatinine Clearance 33 mL/min (70-130); Calcium 8.7 mg/dL (7.8-10.44); Carbon Dioxide 22 mmol/L (23-31); Chloride 99 mmol/L (98-107); Estimated GFR 29; Globulin 3.3 g/dL (2.4-3.5); Glucose 120 mg/dL (83-110); Potassium 4.4 mmol/L (3.5-5.1); Protein, Total 6.9 g/dL (5.8-8.1); Sodium 131 mmol/L (136-145)
[2023-02-12] MEDS: Levothyroxine Sodium 100 MCG TAB PO SCH (06:52)
[2023-02-12] MEDS: Mometasone 100 MCG/Formoterol 5 MCG 120 PUFF INHALER INH SCH ×2 (07:10→19:21)
[2023-02-12] MEDS: Sertraline 100 MG TAB PO SCH (09:47)
[2023-02-12] MEDS: Apixaban 2.5 MG TAB PO SCH ×2 (09:47→21:02)
[2023-02-12] MEDS: Ferrous Sulfate 325 MG TAB PO SCH (09:47)
[2023-02-12] MEDS: busPIRone HCl 5 MG TAB PO SCH ×2 (09:49→21:02)
[2023-02-12] MEDS: Aspirin Chewable 81 MG TAB PO SCH (09:49)
[2023-02-12] MEDS: Clopidogrel Bisulfate 75 MG TAB PO SCH (09:49)
[2023-02-12] MEDS ORDERED: Sodium Chloride 0.9% 250 ML 250 ML IV SCH (10:00)
[2023-02-12] MEDS: Amiodarone 450 MG in Dextrose 5% in Water 250 ML IVPB SCH (13:07)
[2023-02-12] MEDS: Albuterol 200 PUFF (6.7GM INHALER) INH PRN (19:21)
[2023-02-12] MEDS: traZODone HCl 50 MG TAB PO PRN (21:02)
[2023-02-13 04:43] LABS: #Monocytes 1.1 thou/uL (0.11-0.59); #Neutrophils 4.3 thou/uL (1.40-6.50); %Basophils 0.3 % (0.0-1.0); %Eosinophils 0.5 % (0.0-10.0); %Lymphocytes 16.5 % (21.0-51.0); %Monocytes 16.8 % (0.0-10.0); %Neutrophils 65.3 % (42.0-75.0); Hematocrit 30.5 % (36.0-47.0); Hemoglobin 9.3 g/dL (12.0-16.0); Mean Corpuscular HGB CONC 30.5 g/dL (32.0-36.0); Mean Corpuscular Hemoglobin 25.8 pg (27.0-31.0); Mean Corpuscular Volume 84.7 fl (78.0-98.0); Mean Platelet Volume 10.6 fL (7.4-10.4); Platelet Count 224 10x3/uL (130-400); RBC Distribution Width 16.1 % (11.5-14.5); White Blood Cell (WBC) Count 6.5 10x3/uL (4.8-10.8)
[2023-02-13 05:13] LABS: ALT (SGPT) 320 U/L (8-55); AST (SGOT) 294 U/L (5-34); Albumin 3.5 g/dL (3.4-4.8); Alkaline Phosphatase 108 U/L (40-110); Anion Gap 17 mmol/L (10-20); BUN (Urea Nitrogen) 37 mg/dL (9.8-20.1); Calc. Creatinine Clearance 37 mL/min (70-130); Calcium 8.6 mg/dL (7.8-10.44); Carbon Dioxide 21 mmol/L (23-31); Chloride 98 mmol/L (98-107); Estimated GFR 32; Glucose 114 mg/dL (83-110); Potassium 4.3 mmol/L (3.5-5.1); Protein, Total 6.5 g/dL (5.8-8.1); Sodium 132 mmol/L (136-145)
[2023-02-13] MEDS: Levothyroxine Sodium 100 MCG TAB PO SCH (06:01)
[2023-02-13] MEDS: Mometasone 100 MCG/Formoterol 5 MCG 120 PUFF INHALER INH SCH ×2 (07:35→19:13)
[2023-02-13] MEDS ORDERED: Furosemide 20 MG/2 ML VIAL SLOW IVP SCH (08:15)
[2023-02-13] MEDS: Apixaban 2.5 MG TAB PO SCH ×2 (08:29→21:02)
[2023-02-13] MEDS: Ferrous Sulfate 325 MG TAB PO SCH (08:29)
[2023-02-13] MEDS: busPIRone HCl 5 MG TAB PO SCH ×2 (08:29→21:02)
[2023-02-13] MEDS: Aspirin Chewable 81 MG TAB PO SCH (08:29)
[2023-02-13] MEDS: Sertraline 100 MG TAB PO SCH (08:29)
[2023-02-13] MEDS: Clopidogrel Bisulfate 75 MG TAB PO SCH (08:29)
[2023-02-13] MEDS: Amiodarone 200 MG TAB PO SCH (08:29)
[2023-02-13] MEDS: Gabapentin 100 MG CAP PO PRN (09:54)
[2023-02-13 11:03] VITALS: BMI 30.6
[2023-02-13] MEDS: ALPRAZolam 0.5 MG TAB PO PRN (21:03)
[2023-02-13] MEDS: traZODone HCl 50 MG TAB PO PRN (21:03)
[2023-02-14] MEDS: Levothyroxine Sodium 100 MCG TAB PO SCH (06:47)
[2023-02-14 07:05] LABS: Hematocrit 29.2 % (36.0-47.0); Hemoglobin 8.9 g/dL (12.0-16.0); Platelet Count 222 10x3/uL (130-400)
[2023-02-14 07:06] LABS: #Monocytes 1.1 thou/uL (0.11-0.59); #Neutrophils 4.1 thou/uL (1.40-6.50); %Basophils 0.3 % (0.0-1.0); %Eosinophils 0.5 % (0.0-10.0); %Monocytes 16.9 % (0.0-10.0); %Neutrophils 66.5 % (42.0-75.0); Hematocrit 28.8 % (36.0-47.0); Hemoglobin 8.9 g/dL (12.0-16.0); Mean Corpuscular HGB CONC 30.9 g/dL (32.0-36.0); Mean Corpuscular Hemoglobin 25.9 pg (27.0-31.0); Mean Corpuscular Volume 83.7 fl (78.0-98.0); Mean Platelet Volume 10.3 fL (7.4-10.4); Platelet Count 221 10x3/uL (130-400); RBC Distribution Width 16.2 % (11.5-14.5); Red Blood Cell (RBC) Count 3.44 mill/uL (4.20-5.40); White Blood Cell (WBC) Count 6.2 10x3/uL (4.8-10.8)
[2023-02-14 07:34] LABS: ALT (SGPT) 309 U/L (8-55); AST (SGOT) 266 U/L (5-34); Albumin 3.4 g/dL (3.4-4.8); Alkaline Phosphatase 115 U/L (40-110); Anion Gap 17 mmol/L (10-20); BUN (Urea Nitrogen) 47 mg/dL (9.8-20.1); Bilirubin, Total 1.2 mg/dL (0.2-1.2); Calc. Creatinine Clearance 32 mL/min (70-130); Calcium 8.9 mg/dL (7.8-10.44); Carbon Dioxide 23 mmol/L (23-31); Chloride 99 mmol/L (98-107); Estimated GFR 28; Globulin 3.1 g/dL (2.4-3.5); Glucose 114 mg/dL (83-110); Potassium 4.5 mmol/L (3.5-5.1); Protein, Total 6.5 g/dL (5.8-8.1); Sodium 134 mmol/L (136-145)
[2023-02-14] MEDS: Mometasone 100 MCG/Formoterol 5 MCG 120 PUFF INHALER INH SCH (07:46)
[2023-02-14] MEDS: busPIRone HCl 5 MG TAB PO SCH (09:21)
[2023-02-14] MEDS: Clopidogrel Bisulfate 75 MG TAB PO SCH (09:21)
[2023-02-14] MEDS: Aspirin Chewable 81 MG TAB PO SCH (09:21)
[2023-02-14] MEDS: Sertraline 100 MG TAB PO SCH (09:21)
[2023-02-14] MEDS: Ferrous Sulfate 325 MG TAB PO SCH (09:21)
[2023-02-14] MEDS: Amiodarone 200 MG TAB PO SCH (09:21)
[2023-02-14] MEDS: Apixaban 2.5 MG TAB PO SCH (09:22)
[2023-02-14 15:04] VITALS: BP 101/59; TEMP 97.5
== END 2023-02-14 14:20 | disposition hospice, home (50) | DRG 280 ==
LOC: ERS 16:55 → 2NO 19:31
PROVIDERS: ADMIT Family Medicine; ATTEND Family Medicine
DX: I48.92 Unspecified atrial flutter (principal); I21.4 Non-ST elevation (NSTEMI) myocardial infarction; I50.23 Acute on chronic systolic (congestive) heart failure; E87.1 Hypo-osmolality and hyponatremia; I13.0 Hypertensive heart and chronic kidney disease with heart failure and stage 1 through stage 4 chronic kidney disease, or unspecified chronic kidney disease; N17.9 Acute kidney failure, unspecified; I25.2 Old myocardial infarction; E03.9 Hypothyroidism, unspecified; J44.9 Chronic obstructive pulmonary disease, unspecified; N18.31 Chronic kidney disease, stage 3a; Z79.899 Other long term (current) drug therapy; G25.81 Restless legs syndrome; I25.10 Atherosclerotic heart disease of native coronary artery without angina pectoris; I25.5 Ischemic cardiomyopathy; D50.9 Iron deficiency anemia, unspecified; D63.1 Anemia in chronic kidney disease; I48.0 Paroxysmal atrial fibrillation; Z90.49 Acquired absence of other specified parts of digestive tract; Z90.710 Acquired absence of both cervix and uterus; Z87.891 Personal history of nicotine dependence; Z88.0 Allergy status to penicillin; Z88.2 Allergy status to sulfonamides; Z88.8 Allergy status to other drugs, medicaments and biological substances; Z86.73 Personal history of transient ischemic attack (TIA), and cerebral infarction without residual deficits
CPT/HCPCS: 36415; 36416; 71045; 76705; 80053; 80074; 81001; 82553; 82570; 82728; 83540; 83550; 83605; 83690; 83735; 83880; 83930; 83935; 84100; 84145; 84300; 84443; 84466; 84484; 85014; 85018; 85025; 85049; 85379; 85610; 85730; 87040; 87077; 87086; 87186; 93005; 93010; 93970; 94640; 96361; 96374; 96375; J0282; J1160; J1644; J1940; J2060; J2550; J3010; J3475; J7070; J7120; J7620; P9045

== ENCOUNTER 2023-06-14 03:17 | Observation (INO) | payer MEDICARE, OTHER ==
[2023-06-14 04:26] LABS: #Monocytes 0.6 thou/uL (0.11-0.59); #Neutrophils 3.8 thou/uL (1.40-6.50); %Basophils 0.4 % (0.0-1.0); %Eosinophils 0.8 % (0.0-10.0); %Lymphocytes 12.8 % (21.0-51.0); %Neutrophils 73.8 % (42.0-75.0); Hemoglobin 11.5 g/dL (12.0-16.0); Mean Corpuscular HGB CONC 31.1 g/dL (32.0-36.0); Mean Corpuscular Hemoglobin 27.6 pg (27.0-31.0); Mean Corpuscular Volume 88.7 fl (78.0-98.0); Mean Platelet Volume 9.8 fL (7.4-10.4); Platelet Count 159 10x3/uL (130-400); RBC Distribution Width 17.3 % (11.5-14.5); Red Blood Cell (RBC) Count 4.17 mill/uL (4.20-5.40); White Blood Cell (WBC) Count 5.2 10x3/uL (4.8-10.8)
[2023-06-14 05:06] LABS: ALT (SGPT) 8 U/L (8-55); AST (SGOT) 21 U/L (5-34); Albumin 3.5 g/dL (3.4-4.8); Alkaline Phosphatase 107 U/L (40-110); Anion Gap 14 mmol/L (10-20); BUN (Urea Nitrogen) 15 mg/dL (9.8-20.1); Bilirubin, Total 0.5 mg/dL (0.2-1.2); Calc. Creatinine Clearance 0 mL/min (70-130); Calcium 8.8 mg/dL (7.8-10.44); Carbon Dioxide 25 mmol/L (23-31); Chloride 103 mmol/L (98-107); Estimated GFR 35; Globulin 3.8 g/dL (2.4-3.5); Glucose 95 mg/dL (83-110); Magnesium 2.2 mg/dL (1.6-2.6); Potassium 3.7 mmol/L (3.5-5.1); Protein, Total 7.3 g/dL (5.8-8.1); Sodium 138 mmol/L (136-145); Troponin I 0.024 ng/mL (< 0.028)
[2023-06-14] MEDS ORDERED: Ondansetron PF 4 MG/2 ML Vial IVP PRN (07:15)
[2023-06-14] MEDS ORDERED: Ondansetron ODT 4 MG TAB SL PRN (07:15)
[2023-06-14] MEDS ORDERED: Acetaminophen 325 MG TAB PO PRN (07:15)
[2023-06-14] MEDS ORDERED: Furosemide 40 MG/4 ML VIAL ONE (07:16)
[2023-06-14 07:48] VITALS: BP 109/67
[2023-06-14 07:52] VITALS: BMI 25.3
[2023-06-14] MEDS ORDERED: Furosemide 40 MG/4 ML VIAL SLOW IVP SCH (14:00)
== END 2023-06-14 10:25 | disposition hospice, home (50) ==
LOC: ERS 03:17 → T4-A 06:54 → 2SW 09:01
PROVIDERS: ADMIT Family Medicine; ATTEND Family Medicine
DX: J90 Pleural effusion, not elsewhere classified (principal); I13.0 Hypertensive heart and chronic kidney disease with heart failure and stage 1 through stage 4 chronic kidney disease, or unspecified chronic kidney disease; I50.20 Unspecified systolic (congestive) heart failure; N18.31 Chronic kidney disease, stage 3a; J96.21 Acute and chronic respiratory failure with hypoxia; J44.9 Chronic obstructive pulmonary disease, unspecified; I25.10 Atherosclerotic heart disease of native coronary artery without angina pectoris; I25.2 Old myocardial infarction; E03.9 Hypothyroidism, unspecified; F32.A Depression, unspecified; I48.92 Unspecified atrial flutter; Z79.82 Long term (current) use of aspirin; Z88.8 Allergy status to other drugs, medicaments and biological substances; Z88.5 Allergy status to narcotic agent; Z88.0 Allergy status to penicillin; Z88.2 Allergy status to sulfonamides; Z95.810 Presence of automatic (implantable) cardiac defibrillator; Z90.49 Acquired absence of other specified parts of digestive tract; Z90.89 Acquired absence of other organs; Z95.5 Presence of coronary angioplasty implant and graft; Z87.891 Personal history of nicotine dependence; Z79.890 Hormone replacement therapy; Z79.899 Other long term (current) drug therapy
CPT/HCPCS: 71045; 80053; 83735; 83880; 84484; 85025; 93005; G0378 ×2; 36415; J1940